=== PATIENT | male | born 1945 | race Caucasian/White ===

== ENCOUNTER 2023-06-29 18:25 | Inpatient (IN) | payer MEDICARE, OTHER, SELFPAY ==
[2023-06-29 15:20] VITALS: BP 126/65
--- NOTE | 2023-06-29 16:39 | ED.GENMED ---
History of Present Illness
<Lula Bolaños PA-C - Last Filed: 06/29/23 18:25>
General
Chief Complaint: Fall
Source: patient
Exam Limitations: none
Time Seen by Provider: 06/29/23 16:37
Nursing documentation reviewed up to this point in time: agreed with
Travel History
Have you had any contact with someone who has COVID-19?: No
Do you have any symptoms of coronavirus? Fever > 100 degrees, chills, cough, shortness of breath, sore throat, loss of taste or smell, muscle aches, or headache?: No
History of Present Illness
History of Present Illness:
This is a 78-year-old male with a past medical history of COPD on oxygen, A-fib on Eliquis, diabetes who presents to the emergency department today with left hip pain following a fall. He states that the pain is intermittent and comes and sharp
waves. He states that any cell movement makes the pain significantly worse. He states he was at the dentist today when he is trying to move from his wheelchair to the dentist's chair when he fell onto his left side. He states that on the way down,
he states that he hit his head and hip. He denies headache, chest pain, shortness of breath, abdominal pain, shoulder pain, denies any other injuries. Did not take anything for the pain today did not have anything to eat. He is on a wheelchair at
baseline and has home oxygen to maintain O2 sat greater than 92.
Past History
<Lula Bolaños PA-C - Last Filed: 06/29/23 18:25>
Past History
ED Past Medical History: Cancer, COPD, GERD, HTN, Hypercholesterolemia, NIDDM and Other
ED Past Surgical History: Orthopedic and Other (Cataract surgery)
Social History
Tobacco: Former smoker
Alcohol: Daily
Drug: None
Living: alone
Employment: Retired
Family History
Family History: Other (Dad with Alzheimer's) and Unable to obtain
Review of Systems
<Lula Bolaños PA-C - Last Filed: 06/29/23 18:25>
Review of Systems
All Other Systems: ROS reviewed and negative except as documented in HPI and ROS
Phy Exam
<Lula Bolaños PA-C - Last Filed: 06/29/23 18:25>
Physical Exam
Physical Exam:
General: Patient appears uncomfortable and slightly anxious secondary to pain.
Skin: Warm and dry, no areas of ecchymosis. No edema, swelling, erythema.
HEENT: Head is normocephalic, atraumatic.
Cardiac: Bradycardia, regular rhythm, no murmurs
Pulm: Normal respiratory effort, no wheezes, rales, rhonchi
Abdomen: Non-distended, nontender
Musculoskeletal: Patient has tenderness palpation in the left hip joint. Patient unable to move his left hip joint through active range of motion due to severe pain.
Neuro/Psych: alert and oriented x3. CN II-XII Patient seems to have poor insight to some of his medical conditions.
Course
<Lula Bolaños PA-C - Last Filed: 06/29/23 18:25>
Orders/Labs/Results
Orders:
Orders
06/29/23 15:28
Electrocardiogram (*1) Urgent
Reason for Study: Chest Pain
CT Head W/o Iv Contrast Urgent
Comment:
Reason For Exam: fall
EKG- Treatment ONCE
06/29/23 15:30
CR Hip - LT w/wo Pel 2-3 Vw* Urgent
Comment:
Reason For Exam: fall
Include a pelvis x-ray?: Yes
06/29/23 16:57
Morphine Sulfate 2 mg IV NOW STA
06/29/23 17:01
Complete Blood Count/With Diff Urgent
Comprehensive Metabolic Panel Urgent
06/29/23 18:00
Admit/Transfer Patient As Directed
Co-Sign Provider:
Level of Care: Inpatient admission
Assign to:: Telemetry
Physician / Group: brooke
Diagnosis: hip fracture
Reason for Telemetry: Arrhythmia
Date to Stop Telemetry: 07/02/23
Time to Stop Telemetry: 11:00
Reason for Hospitalization: hip fracture
Expected length of stay greater than two midnights?: Yes
ELOS- Estimated Length of Stay in days: 2
I certify the patient meets the requirements for IP care: Yes
06/29/23 18:01
Code Status As Directed
Resuscitation Status: Full Code
07/02/23 11:00
DC Protocol for Telemetry ONCE
Abnormal Lab Results
06/29/23
17:01
WBC 13.4 H 10^3/uL
(4.8-10.8)
RBC 4.05 L 10^6/uL
(4.70-6.10)
Hgb 12.0 L g/dL
(13.0-18.0)
Hct 37.2 L %
(39.0-52.0)
MCHC 32.3 L g/dL
(33.0-37.0)
Abs Immat Gran (auto) 0.1 H 10^3/uL
(0-0.05)
Absolute Neuts (auto) 11.1 H 10^3/uL
(1.4-6.5)
Absolute Lymphs (auto) 1.1 L 10^3/uL
(1.2-3.4)
Absolute Monos (auto) 0.9 H 10^3/uL
(0.1-0.6)
Neutrophils % 82.9 H %
(42.2-75.2)
Lymphocytes % 8.2 L %
(20.5-51.1)
Glucose 136 H mg/dl
(70-99)
06/29/23 17:01
06/29/23 17:01
Vital Signs
Initial and Last Documented VS:
Initial Vital Signs
Temp Pulse Resp BP Pulse Ox
97.6 F 45 20 126/65 98
06/29/23 15:20 06/29/23 15:20 06/29/23 15:20 06/29/23 15:20 06/29/23 15:20
Last Documented Vital Signs
Temp Pulse Resp BP Pulse Ox
97.6 F 46 20 137/58 92
06/29/23 15:20 06/29/23 18:15 06/29/23 15:20 06/29/23 18:00 06/29/23 18:15
<Anders Hester, DO - Last Filed: 06/29/23 17:32>
Orders/Labs/Results
Orders:
Orders
06/29/23 15:28
Electrocardiogram (*1) Urgent
Reason for Study: Chest Pain
CT Head W/o Iv Contrast Urgent
Comment:
Reason For Exam: fall
EKG- Treatment ONCE
06/29/23 15:30
CR Hip - LT w/wo Pel 2-3 Vw* Urgent
Comment:
Reason For Exam: fall
Include a pelvis x-ray?: Yes
06/29/23 16:57
Morphine Sulfate 2 mg IV NOW STA
06/29/23 17:01
Complete Blood Count/With Diff Urgent
Comprehensive Metabolic Panel Urgent
06/29/23 18:00
Admit/Transfer Patient As Directed
Co-Sign Provider:
Level of Care: Inpatient admission
Assign to:: Telemetry
Physician / Group: brooke
Diagnosis: hip fracture
Reason for Telemetry: Arrhythmia
Date to Stop Telemetry: 07/02/23
Time to Stop Telemetry: 11:00
Reason for Hospitalization: hip fracture
Expected length of stay greater than two midnights?: Yes
ELOS- Estimated Length of Stay in days: 2
I certify the patient meets the requirements for IP care: Yes
06/29/23 18:01
Code Status As Directed
Resuscitation Status: Full Code
07/02/23 11:00
DC Protocol for Telemetry ONCE
Abnormal Lab Results
06/29/23
17:01
WBC 13.4 H 10^3/uL
(4.8-10.8)
RBC 4.05 L 10^6/uL
(4.70-6.10)
Hgb 12.0 L g/dL
(13.0-18.0)
Hct 37.2 L %
(39.0-52.0)
MCHC 32.3 L g/dL
(33.0-37.0)
Abs Immat Gran (auto) 0.1 H 10^3/uL
(0-0.05)
Absolute Neuts (auto) 11.1 H 10^3/uL
(1.4-6.5)
Absolute Lymphs (auto) 1.1 L 10^3/uL
(1.2-3.4)
Absolute Monos (auto) 0.9 H 10^3/uL
(0.1-0.6)
Neutrophils % 82.9 H %
(42.2-75.2)
Lymphocytes % 8.2 L %
(20.5-51.1)
Glucose 136 H mg/dl
(70-99)
06/29/23 17:01
06/29/23 17:01
Vital Signs
Initial and Last Documented VS:
Initial Vital Signs
Temp Pulse Resp BP Pulse Ox
97.6 F 45 20 126/65 98
06/29/23 15:20 06/29/23 15:20 06/29/23 15:20 06/29/23 15:20 06/29/23 15:20
Last Documented Vital Signs
Temp Pulse Resp BP Pulse Ox
97.6 F 46 20 137/58 92
06/29/23 15:20 06/29/23 18:15 06/29/23 15:20 06/29/23 18:00 06/29/23 18:15
<Lula Bolaños PA-C - Last Filed: 06/29/23 18:25>
MDM/Problems Addressed
Differential Diagnosis Includes:
Differentials include left hip fracture, musculoskeletal sprain/strain, intracranial hemorrhage, epidural hematoma, skull fracture
MDM/Problems Addressed:
Left hip pain
Mechanical fall
Chronic conditions affecting care: DM, HTN and COPD
Acute Exacerbation and/or Progression of Chronic Illness:
n/a
<Lula Bolaños PA-C - Last Filed: 06/29/23 18:25>
*Pulse Oximetry
Patient hypoxic: no
*Critical Care Note
Total Time (30-74mins, 75-104mins- exclusive of procedures): Not Applicable
Data Reviewed
Review of Other/Old Records Reveals: Records (Reviewed recent ER visit from October 2022 for cellulitis)
Prescriptions/Medications Considered But Not Given:
N/A
Further Testing Considered But Not Given:
N/A
<Lula Bolaños PA-C - Last Filed: 06/29/23 18:25>
Patient Management
Discussion with other providers: Hospitalist and Public Defender (Spoke to Dr. Myles with orthopedics)
Escalation/DeEscalation of care consider admission/obs:
This is a 78-year-old male with a past medical history of COPD on oxygen, A-fib on Eliquis, hypertension, diabetes who presents to emergency department today with with left hip pain following a fall. Patient sustained a left hip fracture.
Considering he lives alone, is in severe pain, is unable to ambulate, patient will be admitted for pain control and medical optimization. Orthopedics made aware who will see him on rounds tomorrow and plans for surgery around or Wednesday.
Patient referred for admission
<Lula Bolaños PA-C - Last Filed: 06/29/23 18:25>
Update Note
Update Note:
4:45 pm-- Initially evaluated patient
5:19 pm--spoke to daughter to update on plans, confirmed that he does live in his own apartment at [facility] living [facility] does not completely live on his own. Daughter reports that he has had increasingly more confusion lately and suspects
he may be starting develop dementia
ED Attending Note
<Lula Bolaños PA-C - Last Filed: 06/29/23 18:25>
-
Portions of this chart may have been created with voice recognition software.� Occasional wrong word or��sound alike� substitutions may have occurred due to the inherent limitations of voice recognition software.
<Anders Hester DO - Last Filed: 06/29/23 17:32>
ED Attending Note
Patient seen and examined by attending physician: Yes
I performed the substantive portion of visit, reviewed & personally made and approve the management plan that is documented in note by myself or JEN.: Yes
I performed a history and physical exam of patient and discussed management with resident, I reviewed resident's note and agree with documented findings and plan of care.: Yes
ED Attending Note:
I evaluated patient at bedside. The patient does appear somewhat confused. He has decreased active range of motion at the left hip.
Discharge Plan
Departure
Patient Disposition: Admit
Date of Disposition: 06/29/23
Time of Disposition: 17:11
Admit to doctor: Dr. Webber
Presentation/result/management discussed w/ accepting MD/DO: Hospitalist
Patient with high blood pressure during this ER visit?: Yes
Condition: Fair
Discharge Problem:
Closed left hip fracture, Bradycardia
Prescriptions:
No Action
metoprolol succinate 100 MG tablet extended release 24 hr
100 mg PO DAILY
aspirin 81 MG tablet,chewable
81 mg PO DAILY
acetaminophen 325 MG tablet
650 mg PO Q4HPRN PRN (Reason: moderate pain/fever)
polyethylene glycol 3350 17 GRAMS powder in packet
17 grams PO MOWEFR
Eliquis 5 MG tablet
5 mg PO BID
magnesium oxide 500 MG tablet
500 mg PO BID 0RF
magnesium hydroxide [Milk of Magnesia] 400 mg/5 mL Suspension
30 ml PO HS PRN (Reason: constipation)
ascorbic acid (vitamin C) [Vitamin C] 500 mg Tablet
500 mg PO DAILY
fluoxetine 20 mg Capsule
20 mg PO DAILY
trazodone 50 mg Tablet
25 mg PO HS
atorvastatin 20 mg tablet
20 mg PO HS
donepezil 10 mg tablet
10 mg PO HS
cyanocobalamin (vitamin B-12) [Vitamin B-12] 1,000 mcg Tablet
1,000 mcg PO DAILY
dextromethorphan-guaifenesin [Guaifenesin DM] 10-100 mg/5 mL Syrup
10 ml PO Q4H PRN (Reason: cough)
Aquaphor Ointment
1 applic TOPICAL BID
Rx Instructions:
apply to left heel
pantoprazole 20 mg tablet,delayed release (DR/EC)
20 mg PO DAILY
zinc sulfate 50 mg zinc (220 mg) Tablet
50 mg PO DAILY
ammonium lactate [AmLactin] 12 % Cream
1 applic TOPICAL BID
Rx Instructions:
apply to heel
lorazepam 1 mg tablet
1 mg PO DAILY PRN (Reason: prior to MRI)
cholecalciferol (vitamin D3) [Vitamin D3] 125 mcg (5,000 unit) Tablet
250 mcg PO MONTHLY
Rx Instructions:
every Wednesday
fluticasone furoate-vilanterol [Breo Ellipta] 100-25 mcg/dose blister with device
1 inh INHALATION R DAILY
PreserVision AREDS-2 250-90-40-1 mg Capsule
1 tab PO BID
Referrals:
Ofe Christie DO [Family Provider] -
Interventions
Interventions:
*Risk Screen - Suicide Last Done: 06/29/23 15:20
*General Assessment Last Done: 06/29/23 15:20
*Neglect/Abuse Screening Last Done: 06/29/23 15:20
ED- Fall Risk Assessment Last Done: 06/29/23 16:43
*ED COVID-19 Vaccine History Last Done: 06/29/23 16:38
ED-Musculoskeletal Assessment Last Done: 06/29/23 16:43
ED- Neurological Assessment Last Done: 06/29/23 16:43
ED-Skin Assessment Last Done: 06/29/23 16:44
[2023-06-29 16:42] VITALS: BMI 25.3
[2023-06-29 16:48] VITALS: BP 156/63
[2023-06-29 17:00] VITALS: BP 152/55
[2023-06-29] MEDS: MORPHINE SULFATE 2 MG IV ×2 (17:01→19:23)
[2023-06-29 17:27] LABS: % Basophils 0.5 % (0-2); % Eosinophils 1.6 % (0-6); % Immature Granulocytes 0.4 % (0-0.5); % Lymphocytes 8.2 % (20.5-51.1); % Monocytes 6.4 % (1.7-9.3); % Neutrophils 82.9 % (42.2-75.2); Absolute Basophils 0.1 10^3/uL (0-0.2); Absolute Eosinophils 0.2 10^3/uL (0-0.7); Absolute Immature Granulocytes 0.1 10^3/uL (0-0.05); Absolute Lymphocytes 1.1 10^3/uL (1.2-3.4); Absolute Monocytes 0.9 10^3/uL (0.1-0.6); Absolute Neutrophils 11.1 10^3/uL (1.4-6.5); Hematocrit 37.2 % (39.0-52.0); Mean Corp Hgb Conc. 32.3 g/dL (33.0-37.0); Mean Corpuscular Hgb 29.6 pg (27.0-31.0); Mean Corpuscular Volume 91.9 fL (80.0-94.0); Mean Platelet Volume 9.2 fL (7.4-10.4); Nucleated Red Blood Cells % 0 % (-); Platelet Count 293 10^3/uL (130-400); Red Blood Cell Count 4.05 10^6/uL (4.70-6.10); Red Cell Dist. Width 14.5 % (11.5-14.5); White Blood Cell Count 13.4 10^3/uL (4.8-10.8)
[2023-06-29 18:00] VITALS: BP 137/58
--- NOTE | 2023-06-29 18:04 | HPS.HSE ---
Family Physician
-
Family Physician: Ofe Christie DO
Chief Complaint
-
fall
History of Present Illness
78-year-old male with past medical history of atrial fibrillation on Eliquis, hypertension, COPD on home oxygen, diabetes, GERD, hypercholesteremia, ambulatory dysfunction wheelchair-bound at baseline presenting to the emergency room after left hip
pain after a fall. Pain is intermittent and comes in sharp waves. Any movement makes pain worse. He was at the dentist today when he was trying to move from his wheelchair to the dentist chair he fell onto his left side and hit his head and hip.
He denies headache or chest pain or shortness of breath or abdominal pain or shoulder pain or any other injuries.
Patient denies any chest pain or shortness of breath or dizziness. He denies any palpitation or syncope. He denies any complications with anesthesia previously.
He sees a fashion director in [place]. He is a former smoker. Denies any alcohol use at this time.
Medical History
Past Medical History
Past Medical History: Reports Other (atrial fibrillation on Eliquis, hypertension, COPD on home oxygen, diabetes, GERD, hypercholesteremia, ambulatory dysfunction wheelchair-bound at baseline)
Past Surgical History: Reports Other (Orthopedic and Other (Cataract surgery))
Social History
Tobacco: Former Smoker
Alcohol: None
Drug: None
Family History
Family History: Not pertinent
Allergies / Home Medications
Allergies reflects when Allergies were last updated in [employer].
Home Medications with original date entered in [employer]
Allergy/Medication List:
Allergies
Allergy/AdvReac Type Severity Reaction Status Date / Time
naproxen [From Naprosyn] Allergy Rash Verified 06/29/23 15:20
Home Medications
acetaminophen 325 mg tablet 650 mg PO Q4HPRN PRN moderate pain/fever 07/15/21
aspirin 81 mg chewable tablet 81 mg PO DAILY Blood clot prevention/tx 07/15/21
metoprolol succinate 100 mg tablet,extended release 24 hr 100 mg PO DAILY Blood pressure 07/15/21
polyethylene glycol 3350 17 gram oral powder packet 17 grams PO MOWEFR Constipation 07/15/21
apixaban 5 mg tablet (Eliquis) 5 mg PO BID Blood clot prevention/tx 09/10/21
magnesium oxide 500 mg PO BID 09/29/21
ascorbic acid (vitamin C) 500 mg tablet (Vitamin C) 500 mg PO DAILY 02/11/22
fluoxetine 20 mg capsule 20 mg PO DAILY 02/11/22
magnesium hydroxide 400 mg/5 mL oral suspension (Milk of Magnesia) 30 ml PO HS PRN constipation 02/11/22
trazodone 50 mg tablet 25 mg PO HS 02/11/22
ammonium lactate 12 % topical cream 1 applic topical BID 06/29/23
atorvastatin 20 mg tablet 20 mg PO HS 06/29/23
cholecalciferol (vitamin D3) 125 mcg (5,000 unit) tablet (Vitamin D3) 250 mcg PO MONTHLY 06/29/23
cyanocobalamin (vitamin B-12) 1,000 mcg tablet (Vitamin B-12) 1,000 mcg PO DAILY 06/29/23
dextromethorphan-guaifenesin 10 mg-100 mg/5 mL oral syrup 10 ml PO Q4H PRN cough 06/29/23
donepezil 10 mg tablet 10 mg PO HS 06/29/23
fluticasone furoate 100 mcg-vilanterol 25 mcg/dose inhalation powder (Breo Ellipta) 1 inh inhalation R DAILY 06/29/23
lorazepam 1 mg tablet 1 mg PO DAILY PRN prior to MRI 06/29/23
mineral oil-hydrophil petrolat topical ointment (Aquaphor topical ointment) 1 applic topical BID 06/29/23
pantoprazole 20 mg tablet,delayed release 20 mg PO DAILY 06/29/23
vit C 250 mg-vit E 90 mg-zinc 40 mg-copper 1 [id number] capsule (PreserVision AREDS-2) 1 tab PO BID 06/29/23
zinc sulfate 50 mg zinc (220 mg) tablet 50 mg PO DAILY 06/29/23
Review of Systems
-
History Source: Patient
A 12 point ROS was completed and negative except as noted: Yes
Constitutional: Reports No Symptoms
EENT: Reports No Symptoms
Respiratory: Reports No Symptoms
Cardiac: Reports No Symptoms
Abdomen/GI: Reports No Symptoms
: Reports No Symptoms
Musculoskeletal: Reports No Symptoms
Skin: Reports No Symptoms
Neurological: Reports No Symptoms
Endocrine: Reports No Symptoms
Hematologic/Lymphatic: Reports No Symptoms
Psych: Reports No Symptoms
Physical Exam
Vital Signs
Vital Signs
Temp Pulse Resp BP Pulse Ox
97.6 F 48 20 152/55 96
06/29/23 15:20 06/29/23 17:00 06/29/23 15:20 06/29/23 17:00 06/29/23 16:48
Physical Exam
General: Well Developed, Well Nourished and No Apparent Distress
HEENT: NormoCephalic, Moist mucous membranes and Atraumatic
Respiratory: Clear
Cardiac: S1/S2 and Regular Rhythm; No Murmur or Rub
GI: Soft, Non Tender, Non Distended and Normal Bowel Sounds; No Organomegaly
Rectal: Deferred by Provider
Musculoskeletal: No Clubbing, No Cyanosis and No Edema
Skin: No Rash
Neuro: Nonfocal/grossly intact
Laboratory Results
-
06/29/23 17:01
Data Reviewed
-
Lab Data: Labs Reviewed by me
Old Records: Reviewed
Impression/Plan
-
IMPRESSION:
PLAN:
# Left proximal femur fracture
-Tylenol, morphine as needed
-Hold Eliquis
-Ortho consulted
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
-EKG shows sinus bradycardia with left bundle branch block which is old
-Hold metoprolol
-Cardiology consultation prior to surgery
Paroxysmal atrial fibrillation
-Hold Eliquis
-Continue aspirin
-Hold metoprolol
Essential hypertension
COPD
-Continue inhalers
Type 2 diabetes
-not on medication
GERD
-Continue Protonix
Hypercholesterolemia
-Continue statin
Ambulatory dysfunction wheelchair-bound
Anxiety/depression
-Continue fluoxetine, Ativan, trazodone
Dementia
-Continue donepezil
Full code
DVT prophylaxis�SCDs
Regular diet
[2023-06-29 18:17] LABS: ALT (SGPT) 13 U/L (0-50); AST (SGOT) 20 U/L (17-59); Albumin 3.7 g/dl (3.5-5.0); Alkaline Phosphatase 99 U/L (38-126); Blood Urea Nitrogen 12 mg/dl (9-20); Calcium 9.1 mg/dl (8.4-10.2); Carbon Dioxide 28 mmol/L (22-30); Chloride 106 mmol/L (98-107); Estimated Creatinine Clearance 76 ml/min; Glucose 136 mg/dl (70-99); Potassium 4.3 mmol/L (3.5-5.1); Sodium 136 mmol/L (135-145); Total Bilirubin 0.6 mg/dl (0.2-1.3); Total Protein 6.4 g/dl (6.3-8.2); eGFR > 60.00
[2023-06-29 19:35] VITALS: BP 134/57; BMI 24.7
[2023-06-29] MEDS: SYMBICORT 160/4.5 MCG INHALER 2 PUFF INH (19:52)
[2023-06-29] MEDS: OCUVITE SOFTGEL 1 CAP PO (20:36)
[2023-06-29] MEDS: MAGNESIUM OXIDE 500 MG PO (20:36)
[2023-06-29] MEDS: LAC HYDRIN, AM LACTIN LOTION 1 APPLIC TOPICAL (20:36)
[2023-06-29] MEDS: HYDROPHOR 1 APPLIC TOPICAL (20:36)
[2023-06-29 20:45] VITALS: BMI 24.7
[2023-06-29] MEDS: LIPITOR 20 MG PO (21:13)
[2023-06-29] MEDS: DESYREL 25 MG PO (21:13)
[2023-06-29] MEDS: ARICEPT 10 MG PO (21:13)
[2023-06-29 23:24] VITALS: BP 115/57
[2023-06-30] VITALS (7 sets, daily range): BP systolic 97–136; BP diastolic 46–83
[2023-06-30] MEDS: MORPHINE SULFATE 2 MG IV ×4 (01:54→19:37)
[2023-06-30 07:04] LABS: % Basophils 0.5 % (0-2); % Eosinophils 0.4 % (0-6); % Immature Granulocytes 0.4 % (0-0.5); % Lymphocytes 13.4 % (20.5-51.1); % Monocytes 11.7 % (1.7-9.3); % Neutrophils 73.6 % (42.2-75.2); Absolute Basophils 0.1 10^3/uL (0-0.2); Absolute Lymphocytes 1.5 10^3/uL (1.2-3.4); Absolute Monocytes 1.3 10^3/uL (0.1-0.6); Absolute Neutrophils 8.2 10^3/uL (1.4-6.5); Hematocrit 32.5 % (39.0-52.0); Hemoglobin 10.6 g/dL (13.0-18.0); Mean Corp Hgb Conc. 32.6 g/dL (33.0-37.0); Mean Corpuscular Hgb 29.9 pg (27.0-31.0); Mean Corpuscular Volume 91.8 fL (80.0-94.0); Mean Platelet Volume 9.2 fL (7.4-10.4); Nucleated Red Blood Cells % 0 % (-); Platelet Count 252 10^3/uL (130-400); Red Blood Cell Count 3.54 10^6/uL (4.70-6.10); Red Cell Dist. Width 14.7 % (11.5-14.5); White Blood Cell Count 11.1 10^3/uL (4.8-10.8)
[2023-06-30 07:42] LABS: ALT (SGPT) 13 U/L (0-50); AST (SGOT) 17 U/L (17-59); Albumin 3.1 g/dl (3.5-5.0); Alkaline Phosphatase 76 U/L (38-126); Blood Urea Nitrogen 16 mg/dl (9-20); Carbon Dioxide 27 mmol/L (22-30); Chloride 101 mmol/L (98-107); Estimated Creatinine Clearance 84 ml/min; Glucose 114 mg/dl (70-99); Potassium 4.2 mmol/L (3.5-5.1); Sodium 138 mmol/L (135-145); Total Bilirubin 0.9 mg/dl (0.2-1.3); Total Protein 5.6 g/dl (6.3-8.2); eGFR > 60.00
--- NOTE | 2023-06-30 08:22 | CON.CAR ---
Addendum entered and electronically signed by Silvio Jerry MD 06/30/23 13:20:
Patient seen and examined in collaboration with [employer]ORING ROOM [employer]; agree with below.
-78-year-old male with medical history as outlined below; admitted with a left hip fracture after a fall.
-The patient will be at elevated cardiac risk as documented below, but appears to be optimized at this time.
-Unremarkable echocardiogram and stress test in 2021; denies any cardiac symptoms currently.
-Continue fermenter helper; will decrease Toprol-XL dose to 50 mg daily.
-Will continue to follow along periprocedurally; Eliquis being held for surgery.
Original Note:
Consultation
Consultation Request
Date/Time Consultation Requested: 06/29/232228
Date/Time Consultation Performed: 06/30/23 0800
Requesting Provider: Dr. Rosa
Performing Provider: Yue GREEN for Dr. Jerry
Reason for Consultation: bradycardia
Medical History
-
Chief Complaint: fall with hip pain
History of Present Illness:
78 y/o male with resolved NICM, COPD, LBBB, GERD, DM, dyslipidemia, PAD, PAF (per chart, though patient unaware of this diagnosis), dementia, and DVT on Eliquis who is here for evaluation after he was moving from his wheelchair to dentist chair and
slipped and fell. He developed hip pain and is confirmed to have a left hip fracture. We are consulted since bradycardia was noted on the monitor. He denies any dizziness or syncope. EKG shows SB at 46 BPM. Monitor shows SB/SR in 50's-60, without
long pauses or severe bradycardia. He denies any CP or SOB, but is generally wheelchair bound. He has seen Dr. Macedo as OP 2015. Notes suggest he has education counselor in [place], but he cannot confirm this for me.
Past Medical History
Past Medical History: Other (as above)
Social History
Tobacco: Former Smoker
Alcohol: Daily (2 drinks daily (manhattens or beer))
Living: Assisted Living
Family History
Family History: Reviewed & Not Pertinent
Allergies / Home Medications
Allergy/AdvReac Type Severity Reaction Status Date / Time
naproxen [From Naprosyn] Allergy Rash Verified 06/29/23 15:20
Medication Instructions Recorded Confirmed Type
acetaminophen 325 mg tablet 650 mg PO Q4HPRN PRN moderate 07/15/21 06/29/23 History
pain/fever
aspirin 81 mg chewable tablet 81 mg PO DAILY Blood clot 07/15/21 06/29/23 History
prevention/tx
metoprolol succinate 100 mg 100 mg PO DAILY Blood pressure 07/15/21 06/29/23 History
tablet,extended release 24 hr
polyethylene glycol 3350 17 gram 17 grams PO MOWEFR Constipation 07/15/21 06/29/23 History
oral powder packet
apixaban 5 mg tablet (Eliquis) 5 mg PO BID Blood clot 09/10/21 06/29/23 History
prevention/tx
magnesium oxide 500 mg PO BID 09/29/21 06/29/23 Rx
ascorbic acid (vitamin C) 500 mg 500 mg PO DAILY 02/11/22 06/29/23 History
tablet (Vitamin C)
fluoxetine 20 mg capsule 20 mg PO DAILY 02/11/22 06/29/23 History
magnesium hydroxide 400 mg/5 mL 30 ml PO HS PRN constipation 02/11/22 06/29/23 History
oral suspension (Milk of Magnesia)
trazodone 50 mg tablet 25 mg PO HS 02/11/22 06/29/23 History
ammonium lactate 12 % topical cream 1 applic topical BID 06/29/23 06/29/23 History
atorvastatin 20 mg tablet 20 mg PO HS 06/29/23 06/29/23 History
cholecalciferol (vitamin D3) 125 250 mcg PO MONTHLY 06/29/23 06/29/23 History
mcg (5,000 unit) tablet (Vitamin
D3)
cyanocobalamin (vitamin B-12) 1,000 mcg PO DAILY 06/29/23 06/29/23 History
1,000 mcg tablet (Vitamin B-12)
dextromethorphan-guaifenesin 10 10 ml PO Q4H PRN cough 06/29/23 06/29/23 History
mg-100 mg/5 mL oral syrup
donepezil 10 mg tablet 10 mg PO HS 06/29/23 06/29/23 History
fluticasone furoate 100 1 inh inhalation R DAILY 06/29/23 06/29/23 History
mcg-vilanterol 25 mcg/dose
inhalation powder (Breo Ellipta)
lorazepam 1 mg tablet 1 mg PO DAILY PRN prior to MRI 06/29/23 06/29/23 History
mineral oil-hydrophil petrolat 1 applic topical BID 06/29/23 06/29/23 History
topical ointment (Aquaphor topical
ointment)
pantoprazole 20 mg tablet,delayed 20 mg PO DAILY 06/29/23 06/29/23 History
release
vit C 250 mg-vit E 90 mg-zinc 40 1 tab PO BID 06/29/23 06/29/23 History
mg-copper 1 [id number]
capsule (PreserVision AREDS-2)
zinc sulfate 50 mg zinc (220 mg) 50 mg PO DAILY 06/29/23 06/29/23 History
tablet
Review of Systems
-
History Source: Patient
All other systems: Negative unless noted
Musculoskeletal: Other (fall with hip pain)
Physical Exam
Vital Signs
Temp Pulse Resp BP Pulse Ox
98.3 F 72 18 131/77 97
06/30/23 08:08 06/30/23 08:08 06/30/23 08:08 06/30/23 08:08 06/30/23 08:08
Lab Results
06/30/23 06:49
06/30/23 06:49
Physical Exam
General: Well Developed, Well Nourished and No Apparent Distress
HEENT: Normocephalic and Anicteric
Respiratory: Clear and Non Labored Respirations
Cardiac: Regular Rhythm (SB/SR)
Musculoskeletal: No Edema
Skin: Warm and Dry
Neuro: AO x 3 (but forgetful (which has been noted by family per chart))
Psych: Calm
Impression / Plan
-
Left femur fracture: acute
-this diagnosis in threat to bodily function
-management per ortho. Plan per chart will be open reduction, internal fixation with gamma nail after Eliquis washout.
-pre-op cardiovascular risk assessment: patient is above average risk for surgery due to age, functional status, and comorbidities: see chart below for details. We will continue BB, but lower dose due to asymptomatic bradycardia. He denies any CP,
SOB, palpitations, or dizziness. He is wheelchair-bound. Echo 2021 normal and stress test 2021 without ischemia. Follow telemetry.
Resolved NICM:
-diagnosed in 2014 in setting of acute illness
-echo 2021 normal
PAD:
-follows with vascular
-continue ASA, statin
LBBB:
-chronic, stable
PAF:
-per chart, patient unaware of this diagnosis
-on Eliquis with hx LE DVT
-on metoprolol, follow tele
COPD:
-stable without wheezing or SOB
Data Reviewed
-
EKG: Tracing Personally Visualized and interpreted (SB at 46 BPM, baseline artifact noted)
Radiology: Report Reviewed by me (hip XR: left proximal femoral fracture, intertrochanteric/subtrochanteric.)
CT Scan: Report Reviewed by me (head CT: No acute intracranial abnormality.)
Medical Tests (Nuc Med, Echo etc): Report Reviewed by me (brunilda stress 07/21/21: no reversible defects. Echo 07/18/21: Normal left ventricular size, wall thickness and systolic function. LV ejection fraction is 50-55%. No significant valvular
disease. Cath 2015: no obstructive CAD)
Labs: Labs Reviewed by me
[2023-06-30] MEDS: SYMBICORT 160/4.5 MCG INHALER 2 PUFF INH ×2 (08:36→20:24)
[2023-06-30] MEDS: VITAMIN B-12 1000 MCG PO (09:16)
[2023-06-30] MEDS: VITAMIN C 500 MG PO (09:16)
[2023-06-30] MEDS: PROTONIX 20 MG PO (09:16)
[2023-06-30] MEDS: LOW STRENGTH ASPIRIN 81 MG PO (09:16)
[2023-06-30] MEDS: PROZAC 20 MG PO (09:16)
[2023-06-30] MEDS: ZINC SULFATE 220 MG PO (09:16)
[2023-06-30] MEDS: MAGNESIUM OXIDE 500 MG PO ×2 (09:16→21:30)
[2023-06-30] MEDS: OCUVITE SOFTGEL 1 CAP PO ×2 (09:16→19:36)
[2023-06-30] MEDS: HYDROPHOR 1 APPLIC TOPICAL ×2 (09:22→21:34)
[2023-06-30] MEDS: LAC HYDRIN, AM LACTIN LOTION 1 APPLIC TOPICAL ×2 (09:23→21:32)
--- NOTE | 2023-06-30 09:38 | W.PN.UPDATE ---
Update Note
Progress Note Update
Patient seen on morning rounds. Full consult note to follow.
Patient sustained an intertrochanteric femur fracture in his fall. We recommend proceeding with ORIF left femur fracture with cephalomedullary nail. The risks, benefits, alternatives, recovery process and potential complications were discussed in
detail. Patient elected to proceed with surgical fixation of his fracture. Surgical and blood consents are signed and in patient's chart. We will proceed with surgery tomorrow afternoon under the direction of Dr. Myles after Eliquis washout.
--NWB to LLE.
--NPO after midnight for OR 07/01/23
--Continue pain control per primary.
--Patient also complaining of left middle finger pain. Ordered XR for further evaluation.
[2023-06-30] MEDS: TOPROL XL 50 MG PO (10:23)
[2023-06-30] MEDS: MIRALAX 17 GRAMS PO (10:24)
--- NOTE | 2023-06-30 11:28 | W.PN.HOSP.TC ---
Addendum entered and electronically signed by Carol Danielson MD 06/30/23 13:23:
updated daughter on the phone
Addendum entered and electronically signed by Carol Danielson MD 06/30/23 11:45:
Correction to below:
Toprol 50 mg was added by card (half of home dose)
Original Note:
Today's Communication/Plan
-
see A/P
Assessment / Plan
Assessment / Plan
78-year-old male with past medical history of atrial fibrillation on Eliquis, hypertension, COPD on home oxygen, diabetes, GERD, hypercholesteremia, ambulatory dysfunction wheelchair-bound at baseline presented to the emergency room after left hip
pain after a fall.�Pain is intermittent and comes in sharp waves.�Any movement makes pain worse.� He was at the dentist on DO[place] when he was trying to move from his wheelchair to the dentist chair he fell onto his left side and hit his head and hip.�
He denies headache or chest pain or shortness of breath or abdominal pain or shoulder pain or any other injuries.
Patient denies any chest pain or shortness of breath or dizziness.� He denies any palpitation or syncope.� He denies any complications with anesthesia previously.
He sees a student worker in [place].� He is a former smoker.� Denies any alcohol use at this time.
A/P:
# Mechanical fall with Left proximal femur fracture
Pain control with Tylenol, morphine as needed
Hold Eliquis
Ortho on board, recc ORIF left femur. Plan for surgery 07/01/[address] Myles after Eliquis washout. NPO after midnight. NWB to LLE.
Patient also complaining of left middle finger pain. XR limited but did not reveal displaced fracture or dislocation.
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
EKG shows sinus bradycardia with left bundle branch block which is old
Hold [employer] metoprolol
Cardiology consultation prior to surgery
# Paroxysmal atrial fibrillation
Hold Eliquis
Continue aspirin
Hold metoprolol
# Essential hypertension
# COPD
Continue inhalers
# Type 2 diabetes
not on medication
# GERD
Continue Protonix
# Hypercholesterolemia
Continue statin
# Ambulatory dysfunction wheelchair-bound
# Anxiety/depression
Continue fluoxetine, Ativan, trazodone
# Dementia
Continue donepezil
Full code
DVT prophylaxis�SCDs
Regular diet
Anticipated Discharge: 24 - 48 hours
Subjective/Interval History
-
Date of Service: June 30, 2023
Objective Data
-
Labs:
Laboratory Results
06/30/23
06:49
WBC 11.1 H
Hgb 10.6 L
Hct 32.5 L
Plt Count 252
Sodium 138
Potassium 4.2
Chloride 101
Carbon Dioxide 27
BUN 16
Creatinine 0.7
Glucose 114 H
Calcium 9.0
Total Bilirubin 0.9
AST 17
ALT 13
Alkaline Phosphatase 76
Vital Signs:
Vital Signs
Temp Pulse Resp BP Pulse Ox
36.8 C 56 18 131/77 97
06/30/23 08:08 06/30/23 08:38 06/30/23 08:38 06/30/23 08:08 06/30/23 09:29
I&O
06/29/23 06/30/23 07/01/23
06:59 06:59 06:59
Intake Total 480 / 480
Balance 480 / 480
Review of Systems
-
All other systems: Reviewed and negative
Physical Exam
-
General: Well Developed, Well Nourished, No Apparent Distress, Comfortable and Conversant; Negative Respiratory Distress
HEENT: Normocephalic, Atraumatic, Nose Appears Normal and Ears Appear Normal; Negative Oxygen
Respiratory: Clear to Auscultation and Non Labored Respirations; Negative Accessory Resp Muscle Use
Cardiac: Regular Rhythm and S1/S2
GI: Soft, Nontender, Nondistended and Normal Bowel Sounds
Skin: Warm and Dry
Neuro: Awake, Alert, Oriented and AO x 3
Psych: Calm and Intact Judgement/Insight
Data Reviewed
-
Labs: Labs Reviewed by me
--- NOTE | 2023-06-30 11:47 | CON.ORTHO ---
Consultation
-
Date/Time Consultation Requested: 06/29/2023; time unknown
Date/Time Consultation Performed: 06/30/2023; 0730
Requesting Provider: unknown
Performing Provider: Dr. Ligia Myles / Yomaira Camarillo PA-C
Reason for Consultation: Left hip fracture
Consultation - Orthopedics
History
Mr. Velásquez is an 78 year old male with past medical history of atrial fibrillation on Eliquis, hypertension, COPD on home oxygen, diabetes, GERD, hypercholesteremia, ambulatory dysfunction wheelchair-bound at baseline. He presented to the ED via EMS
yesterday after a fall. He reports he was at the dentist's office for tooth extraction when he fell onto his left side. He experienced immediate onset of pain and was unable to get off the ground. X-rays in the ED revealed an intertrochanteric femur
fracture. He is resting comfortably in bed this morning. He does endorse pain in his hip with any movement. Additionally, he endorses pain about his PIP joint of his left third finger.
He reports he is currently staying at [facility] in [place]. He is wheelchair bound at baseline. 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 He does report history of diabetes. He denies PMH of CA. He does
report he was at the dentist yesterday to have 5 teeth extracted because they were 'bad'.
Allergies / Home Medications
Allergy/AdvReac Type Severity Reaction Status Date / Time
naproxen [From Naprosyn] Allergy Rash Verified 06/29/23 15:20
Medication Instructions Recorded
acetaminophen 325 mg tablet 650 mg PO Q4HPRN PRN moderate 07/15/21
pain/fever
aspirin 81 mg chewable tablet 81 mg PO DAILY Blood clot 07/15/21
prevention/tx
metoprolol succinate 100 mg 100 mg PO DAILY Blood pressure 07/15/21
tablet,extended release 24 hr
polyethylene glycol 3350 17 gram 17 grams PO MOWEFR Constipation 07/15/21
oral powder packet
apixaban 5 mg tablet (Eliquis) 5 mg PO BID Blood clot 09/10/21
prevention/tx
magnesium oxide 500 mg PO BID 09/29/21
ascorbic acid (vitamin C) 500 mg 500 mg PO DAILY Supplement 02/11/22
tablet (Vitamin C)
fluoxetine 20 mg capsule 20 mg PO DAILY Depression 02/11/22
magnesium hydroxide 400 mg/5 mL 30 ml PO HS PRN constipation 02/11/22
oral suspension (Milk of Magnesia)
trazodone 50 mg tablet 25 mg PO HS Sleep 02/11/22
ammonium lactate 12 % topical cream 1 applic topical BID Skin Issues 06/29/23
atorvastatin 20 mg tablet 20 mg PO HS High Cholesterol 06/29/23
cholecalciferol (vitamin D3) 125 250 mcg PO MONTHLY Supplement 06/29/23
mcg (5,000 unit) tablet (Vitamin
D3)
cyanocobalamin (vitamin B-12) 1,000 mcg PO DAILY Supplement 06/29/23
1,000 mcg tablet (Vitamin B-12)
dextromethorphan-guaifenesin 10 10 ml PO Q4H PRN cough 06/29/23
mg-100 mg/5 mL oral syrup
donepezil 10 mg tablet 10 mg PO HS dementia 06/29/23
fluticasone furoate 100 1 inh inhalation R DAILY 06/29/23
mcg-vilanterol 25 mcg/dose Lung/Breathing Issues
inhalation powder (Breo Ellipta)
lorazepam 1 mg tablet 1 mg PO DAILY PRN prior to MRI 06/29/23
mineral oil-hydrophil petrolat 1 applic topical BID Skin Issues 06/29/23
topical ointment (Aquaphor topical
ointment)
pantoprazole 20 mg tablet,delayed 20 mg PO DAILY Gastrointestinal 06/29/23
release Issue
vit C 250 mg-vit E 90 mg-zinc 40 1 tab PO BID Supplement 06/29/23
mg-copper 1 di-mrazbm-yogzsc
capsule (PreserVision AREDS-2)
zinc sulfate 50 mg zinc (220 mg) 50 mg PO DAILY Supplement 06/29/23
tablet
Vital Signs / Lab Results
Temp Pulse Resp BP Pulse Ox
98.1 F 76 17 136/83 97
06/30/23 11:42 06/30/23 11:42 06/30/23 11:42 06/30/23 11:42 06/30/23 11:42
06/30/23 06:49
06/30/23 06:49
XR Left hip 06/29/2023 IMPRESSION:
Left proximal femoral fracture, intertrochanteric/subtrochanteric.
XR Left Hand 06/30/2023 IMPRESSION:
Limited as above. No displaced fracture or dislocation identified.
Physical Exam:
General: pleasant male in NAD, AAOx3
Head: atraumatic, normocephalic
Eyes: sclera anicteric
Ears: normal hearing
Lungs: normal work of breathing
Heart: no edema
Left hip: No obvious erythema, ecchymosis, edema or lesions. Tenderness to palpation about the lateral and anterior hip. ROM deferred secondary to known fracture. Positive log roll. Calf soft and nontender. Patient able to wiggle toes, plantar and
dorsiflex ankle. Neurovascularly intact distally.
Left hand: Edema throughout the left middle finger. Well approximated laceration over the PIP joint. Tenderness to palpation about the PIP joint. ROM limited secondary to swelling and patient discomfort. Sensation intact to light touch. Capillary
refill <2 seconds.
Assessment / Plan
Left intertrochanteric femur fracture
--Unfortunately, patient sustained an intertrochanteric femur fracture in his fall. We recommend proceeding with ORIF left femur fracture with cephalomedullary nail. The risks, benefits, alternatives, recovery process and potential complications
were discussed in detail. Patient elected to proceed with surgical fixation of his fracture. Surgical and blood consents are signed and in patient's chart. We will proceed with surgery tomorrow afternoon under the direction of Dr. Myles after
Eliquis washout.
--Patient has significant medical history including DVT, TIAs and DM. Would appreciate input from medical team +/- cardiology for surgical clearance.
--NWB to LLE.
--NPO after midnight for OR 07/01/23
--T+S ordered this AM.
--Continue pain control per primary. Ice and elevation for edema control.
--Ancef ordered to OR for pre-op antibiotic prophylaxis.
Left middle finger pain and swelling
--XRs were reviewed which do not reveal obvious fracture or dislocation. I would recommend edwin taping the finger for comfort. Ice, elevation and pain control per primary.
--- NOTE | 2023-06-30 14:18 | PTCARENOTE ---
pt C/O left heel pain. skin appears CDI affected leg is rotated. This nurse applied protective foam dressing and off loaded heel. left great toe lesion appears scabbed, SHILA.
--- NOTE | 2023-06-30 15:21 | CM ---
Reviewed chart, met with patient to obtain information for assessment. Patient stated that he lives at the [facility]. He receives assistance with his ADLs, personal care dressing and bathing. He gets his meals at the facility and they assist with
cleaning and laundry.
Patient has a PCP-Dr. Ofe Christie
patient has a prescription plan and uses [facility] for all of his medications.
Spoke with wound care and his wound is healing and he has no open sores.
Will review functional status with the [facility] prior to returning back Patient would like to return back there when he is medically stable and cleared for discharge.
Plan: Case management will continue to follow and assist with discharge planning. Patient would like to return home when stable.
--- NOTE | 2023-06-30 16:19 | WOUNDNOTE ---
[facility] RN NOTE: Reviewed chart, met with patient. Patient admitted with hip fracture and is on an air bed. Patient consult received for wound of left great toe. Patient states he follows with Dr. Lanza for toe and recently had punch biopsy and is not
aware of a result yet. The wound is closed and patient leaves open to air. Heels are blanchable. Per YEN Escamilla, sacrum intact. Patient declined being moved or turned due to left hip pain. Will continue to follow as needed.
--- NOTE | 2023-06-30 20:25 | W.PN.UPDATE ---
Update Note
Progress Note Update
Patient seen and examined. Agree with orthopedic PA note. Spoke with daughter Stormy via phone today. Patient has abstain from Eliquis for 48 hours. He fell yesterday at his oral surgeons office fracturing his left hip. He has multiple medical
comorbidities including vascular issues and neuropathy. He has 'rotting teeth in his mouth that were to be extracted'He also has toe infections. He lives at [facility]. According to his daughter he primarily ambulates in a wheelchair.
Left lower extremity external rotation and shortening. No ecchymosis.
X-rays AP of the pelvis and AP and lateral of left hip show a comminuted four-part intertrochanteric left hip fracture. No lesions.
Impression comminuted left intertrochanteric hip fracture
Plan: Nonoperative and operative approaches Of his hip fracture were discussed with patient and daughter. I recommend gamma nail fixation of this fracture. The risks are but are not limited to infection, need for further surgery, need for physical
therapy, stiffness, DVT, PE, Malunion, nonunion, screw cut out, hardware failure, need for removal of hardware, need for conversion to total hip operation, neurovascular impairment, wound healing problems, MO, CVA, catastrophic occurrences, etc.
The postoperative regimen was discussed. We will perform procedure tomorrow late afternoon to allow for washout of his Eliquis. Will also give preoperative antibiotics to reduce his risk of infection. All questions were answered. Consent was
signed and placed on the chart.Expectations of surgical procedure were discussed.
[2023-06-30] MEDS: ARICEPT 10 MG PO (21:30)
[2023-06-30] MEDS: LIPITOR 20 MG PO (21:31)
[2023-06-30] MEDS: DESYREL 25 MG PO (21:31)
[2023-07-01] VITALS (12 sets, daily range): BP systolic 104–171; BP diastolic 51–77
[2023-07-01] MEDS: MORPHINE SULFATE 2 MG IV ×2 (02:21→08:37)
--- NOTE | 2023-07-01 06:45 | W.PN.UPDATE ---
Update Note
Progress Note Update
Patient was seen and evaluated by orthopedic surgery this morning. He is lying in bed comfortably, does not appear to be in any acute distress. He does endorse some pain and discomfort to his left hip.
PE: No obvious erythema, ecchymosis, edema or lesions. Tenderness to palpation about the lateral and anterior hip. ROM deferred secondary to known fracture. Positive log roll. Calf soft and nontender. Patient able to wiggle toes, plantar and
dorsiflex ankle. Neurovascularly intact distally.
Plan: Will plan to proceed with left hip gamma nail fixation today 07/01/23 (late afternoon to allow for washout of his Eliquis). Per cardiology, he appears to be optimized at this time to proceed with surgical intervention. NWB to LLE until postop.
Patient to remain n.p.o. for surgical intervention later today. Continue pain control per primary team. Ice and elevation for edema control. Type and screen completed. Hemoglobin this AM 10.5, continue to monitor. Left hip marked as the correct
surgical extremity. Preoperative antibiotics on-call to the OR. Surgical and blood consent forms have been obtained. Orthopedic surgery will continue to follow along.
[2023-07-01] MEDS: SYMBICORT 160/4.5 MCG INHALER 2 PUFF INH (07:24)
[2023-07-01 08:01] LABS: Hematocrit 32.3 % (39.0-52.0); Hemoglobin 10.5 g/dL (13.0-18.0); Mean Corp Hgb Conc. 32.5 g/dL (33.0-37.0); Mean Corpuscular Hgb 29.5 pg (27.0-31.0); Mean Corpuscular Volume 90.7 fL (80.0-94.0); Mean Platelet Volume 9.4 fL (7.4-10.4); Platelet Count 252 10^3/uL (130-400); Red Blood Cell Count 3.56 10^6/uL (4.70-6.10); Red Cell Dist. Width 14.7 % (11.5-14.5); White Blood Cell Count 12.3 10^3/uL (4.8-10.8)
[2023-07-01] MEDS: PROZAC 20 MG PO (08:22)
[2023-07-01] MEDS: ZINC SULFATE 220 MG PO (08:22)
[2023-07-01] MEDS: OCUVITE SOFTGEL 1 CAP PO ×2 (08:22→21:06)
[2023-07-01] MEDS: PROTONIX 20 MG PO (08:22)
[2023-07-01] MEDS: MAGNESIUM OXIDE 500 MG PO ×2 (08:22→21:06)
[2023-07-01] MEDS: LOW STRENGTH ASPIRIN 81 MG PO (08:22)
[2023-07-01] MEDS: VITAMIN B-12 1000 MCG PO (08:23)
[2023-07-01] MEDS: VITAMIN C 500 MG PO (08:23)
[2023-07-01] MEDS: TOPROL XL 50 MG PO (08:23)
--- NOTE | 2023-07-01 08:26 | W.PN.CD ---
Today's Communication / Plan
-
Having significant pain this AM
No new recommendations
Impression / Plan
-
Left femur fracture: acute
-this diagnosis in threat to bodily function
-management per ortho. Plan per chart will be open reduction, internal fixation with gamma nail after Eliquis washout.
-pre-op cardiovascular risk assessment: patient is above average risk for surgery due to age, functional status, and comorbidities: see chart below for details. We will continue BB, but lower dose due to asymptomatic bradycardia. He denies any CP,
SOB, palpitations, or dizziness. He is wheelchair-bound. Echo 2021 normal and stress test 2021 without ischemia. Follow telemetry.
- having significant pain today
Resolved NICM:
-diagnosed in 2014 in setting of acute illness
-echo 2021 normal
PAD:
-follows with vascular
-continue ASA, statin
LBBB:
-chronic, stable
PAF:
-per chart, patient unaware of this diagnosis
-on Eliquis with hx LE DVT
-on metoprolol, follow tele
COPD:
-stable without wheezing or SOB
Physical Exam
Vital Signs/Labs
Vital Signs
Temp Pulse Resp BP Pulse Ox
98.5 F 60 16 145/60 93
07/01/23 08:15 07/01/23 08:15 07/01/23 08:15 07/01/23 08:15 07/01/23 08:15
06/30/23 07/01/23 07/02/23
06:59 06:59 06:59
Actual Weight 167 lb 5 oz
07/01/23 07:17
Physical Exam
Constitutional: No acute distress
Cardiovascular: Rhythm & rate is regular
Respiratory: Respiratory effort normal and Lungs clear to auscul.
GI: Soft
Neuro/Psych: AO x 3
Data Reviewed
-
Date of Service: July 01, 2023
EKG: Tracing Personally Visualized and interpreted
Echo: Report Reviewed by me
X-Ray/CT/US/MRI/NUC/PET: Report Reviewed by me
Labs: Labs Reviewed by me
[2023-07-01] MEDS: LAC HYDRIN, AM LACTIN LOTION 1 APPLIC TOPICAL ×2 (08:30→21:06)
[2023-07-01] MEDS: HYDROPHOR 1 APPLIC TOPICAL ×2 (08:30→21:06)
[2023-07-01 08:31] LABS: Blood Urea Nitrogen 17 mg/dl (9-20); Calcium 8.8 mg/dl (8.4-10.2); Carbon Dioxide 31 mmol/L (22-30); Chloride 103 mmol/L (98-107); Estimated Creatinine Clearance 74 ml/min; Glucose 119 mg/dl (70-99); Potassium 4.2 mmol/L (3.5-5.1); Sodium 134 mmol/L (135-145); eGFR > 60.00
--- NOTE | 2023-07-01 10:45 | W.PN.HOSP.TC ---
Today's Communication/Plan
-
see A/P
Assessment / Plan
Assessment / Plan
78-year-old male with past medical history of atrial fibrillation on Eliquis, hypertension, COPD on home oxygen, diabetes, GERD, hypercholesteremia, ambulatory dysfunction wheelchair-bound at baseline presented to the emergency room after left hip
pain after a fall.�Pain is intermittent and comes in sharp waves.�Any movement makes pain worse.� He was at the dentist on [place] when he was trying to move from his wheelchair to the dentist chair he fell onto his left side and hit his head and hip.�
He denies headache or chest pain or shortness of breath or abdominal pain or shoulder pain or any other injuries.
Patient denies any chest pain or shortness of breath or dizziness.� He denies any palpitation or syncope.� He denies any complications with anesthesia previously.
He sees a district or district office director in [place].� He is a former smoker.� Denies any alcohol use at this time.
A/P:
# Mechanical fall with Left proximal femur fracture
Pain control with Tylenol, morphine as needed
Hold Eliquis
Ortho on board, for ORIF left femur 07/01/[address] Myles after Eliquis washout.
Patient also complaining of left middle finger pain. XR limited but did not reveal displaced fracture or dislocation.
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
EKG shows sinus bradycardia with left bundle branch block which is old
on decreased dose metoprolol
Cardiology on board
# Paroxysmal atrial fibrillation
Hold Eliquis
Continue aspirin
on decreased dose metoprolol
# Essential hypertension
# COPD
Continue inhalers
# Type 2 diabetes
not on medication
# GERD
Continue Protonix
# Hypercholesterolemia
Continue statin
# Ambulatory dysfunction wheelchair-bound
# Anxiety/depression
Continue fluoxetine, Ativan, trazodone
# Dementia
Continue donepezil
Full code
DVT prophylaxis�SCDs
Regular diet
Anticipated Discharge: 24 - 48 hours
Subjective/Interval History
-
Date of Service: July 01, 2023
Objective Data
-
Labs:
Laboratory Results
07/01/23
07:17
WBC 12.3 H
Hgb 10.5 L
Hct 32.3 L
Plt Count 252
Sodium 134 L
Potassium 4.2
Chloride 103
Carbon Dioxide 31 H
BUN 17
Creatinine 0.8
Glucose 119 H
Calcium 8.8
Vital Signs:
Vital Signs
Temp Pulse Resp BP Pulse Ox
36.9 C 60 16 145/60 93
07/01/23 08:15 07/01/23 08:23 07/01/23 08:15 07/01/23 08:23 07/01/23 08:15
I&O
06/30/23 07/01/23 07/02/23
06:59 06:59 06:59
Intake Total 480 / 480 1440 / 1440
Output Total 500 / 500
Balance 480 / 480 940 / 940
Review of Systems
-
All other systems: Reviewed and negative
Physical Exam
-
General: Well Developed, Well Nourished, No Apparent Distress, Comfortable and Conversant; Negative Respiratory Distress
HEENT: Normocephalic, Atraumatic, Nose Appears Normal and Ears Appear Normal; Negative Oxygen
Respiratory: Clear to Auscultation and Non Labored Respirations; Negative Accessory Resp Muscle Use
Cardiac: Regular Rhythm and S1/S2
GI: Soft, Nontender, Nondistended and Normal Bowel Sounds
Skin: Warm and Dry
Neuro: Awake, Alert, Oriented and AO x 3
Psych: Calm and Intact Judgement/Insight
Data Reviewed
-
Labs: Labs Reviewed by me
[2023-07-01] MEDS: ANCEF 10 IV (16:20)
--- NOTE | 2023-07-01 18:47 | PTCARENOTE ---
Pt arrived to 2s in bed. Hip DSG's C/D/I. Nasal cannula maintained, telemetry applied. Bed locked and in the lowest position, safety maintained. Oriented to room and call bernard.
[2023-07-01] MEDS: SYMBICORT 160/4.5 MCG INHALER INH (19:28)
[2023-07-01] MEDS: DESYREL 25 MG PO (21:06)
[2023-07-01] MEDS: ARICEPT 10 MG PO (21:07)
[2023-07-01] MEDS: LIPITOR 20 MG PO (21:07)
[2023-07-01] MEDS: TYLENOL 650 MG PO (21:19)
[2023-07-02] VITALS (7 sets, daily range): BP systolic 119–158; BP diastolic 56–78; PULSE 64; O2SAT 100
[2023-07-02 05:35] LABS: Hematocrit 31.3 % (39.0-52.0); Hemoglobin 10.8 g/dL (13.0-18.0); Mean Corp Hgb Conc. 34.5 g/dL (33.0-37.0); Mean Corpuscular Hgb 30.3 pg (27.0-31.0); Mean Corpuscular Volume 87.7 fL (80.0-94.0); Mean Platelet Volume 9.3 fL (7.4-10.4); Platelet Count 266 10^3/uL (130-400); Red Blood Cell Count 3.57 10^6/uL (4.70-6.10); Red Cell Dist. Width 14.4 % (11.5-14.5)
[2023-07-02 06:06] LABS: Blood Urea Nitrogen 24 mg/dl (9-20); Calcium 9.2 mg/dl (8.4-10.2); Carbon Dioxide 26 mmol/L (22-30); Chloride 98 mmol/L (98-107); Estimated Creatinine Clearance 74 ml/min; Glucose 173 mg/dl (70-99); Potassium 3.9 mmol/L (3.5-5.1); Sodium 135 mmol/L (135-145); eGFR > 60.00
[2023-07-02] MEDS: SYMBICORT 160/4.5 MCG INHALER 2 PUFF INH ×2 (07:42→20:13)
[2023-07-02] MEDS: ZINC SULFATE 220 MG PO (08:49)
[2023-07-02] MEDS: MAGNESIUM OXIDE 500 MG PO ×2 (08:49→21:16)
[2023-07-02] MEDS: TOPROL XL 50 MG PO (08:49)
[2023-07-02] MEDS: OCUVITE SOFTGEL 1 CAP PO ×2 (08:50→21:15)
[2023-07-02] MEDS: LOW STRENGTH ASPIRIN 81 MG PO (08:50)
[2023-07-02] MEDS: LAC HYDRIN, AM LACTIN LOTION 1 APPLIC TOPICAL ×2 (08:50→21:16)
[2023-07-02] MEDS: PROZAC 20 MG PO (08:50)
[2023-07-02] MEDS: PROTONIX 20 MG PO (08:50)
[2023-07-02] MEDS: VITAMIN B-12 1000 MCG PO (08:50)
[2023-07-02] MEDS: VITAMIN C 500 MG PO (08:50)
[2023-07-02] MEDS: HYDROPHOR 1 APPLIC TOPICAL ×2 (08:51→21:15)
[2023-07-02] MEDS: MIRALAX 17 GRAMS PO (08:53)
--- NOTE | 2023-07-02 08:57 | W.PN.ORTHO ---
Documented by User: Dylan Lira PA-C 07/02/23 09:01
Today's Communication / Plan
-
Appreciate the primary team in the management of this patient
Dispo likely SNF, appreciate CM
Continue PWB LLE on walker/assistance
PT/OT
Eliquis per primary- typically we resume POD#1 in half doses for a few days before resuming full anitcoag
Dressings off in 7-10 days
[place] out in 4 weeks (office or SNF)
If lorna out at SNF outpatient Ortho follow-up in 4 weeks
Assessment
.
Distal Motor Intact: Yes
Dressing:
Clean, dry and intact. Aquacel and sterile gauze dressing in place left thigh
Assessment:
POD#1 ORIF Left femur
overall, all things considered, doing well
calf soft, nontender
Plan
.
Activity:
Out of bed.
PT/OT
Discharge Plan: SNF
Subjective
.
.:
Patient resting comfortably this AM w/o significant left hip pain. A bit confused as he asked if we were taking the hardware out today
Vital Signs and Labs
.
Vital Signs and Labs:
Lab Results
07/02/23 05:22
07/02/23 05:22
Temp Pulse Resp BP Pulse Ox
98.8 F 80 16 156/73 95
07/02/23 07:28 07/02/23 07:43 07/02/23 07:43 07/02/23 07:28 07/02/23 07:43

Documented by User: Ligia Myles, 07/02/23 15:06
Assessment
.
Assessment:
POD#1 ORIF Left hip with gamma nail
overall, all things considered, doing well
calf soft, nontender
--- NOTE | 2023-07-02 09:01 | W.PN.CD ---
Today's Communication / Plan
-
- Continue metoprolol 50mg
- Resume Eliquis when OK from surgical perspective
- We will sign off please do now hesitate to reach out with questions/concerns
Impression / Plan
-
Left femur fracture: acute
-this diagnosis in threat to bodily function
-management per ortho. Plan per chart will be open reduction, internal fixation with gamma nail after Eliquis washout.
-pre-op cardiovascular risk assessment: patient is above average risk for surgery due to age, functional status, and comorbidities: see chart below for details. We will continue BB, but lower dose due to asymptomatic bradycardia. He denies any CP,
SOB, palpitations, or dizziness. He is wheelchair-bound. Echo 2021 normal and stress test 2021 without ischemia. Follow telemetry.
- having significant pain today
Resolved NICM:
-diagnosed in 2014 in setting of acute illness
-echo 2021 normal
PAD:
-follows with vascular
-continue ASA, statin
LBBB:
-chronic, stable
PAF:
-per chart, patient unaware of this diagnosis
-Resume Eliquis once OK by surgical perspective
-on metoprolol, follow tele
COPD:
-stable without wheezing or SOB
Physical Exam
Vital Signs/Labs
Vital Signs
Temp Pulse Resp BP Pulse Ox
98.8 F 80 16 156/73 95
07/02/23 07:28 07/02/23 07:43 07/02/23 07:43 07/02/23 07:28 07/02/23 07:43
07/02/23 05:22
07/02/23 05:22
Magnesium 2.0 mg/dl (1.6-2.3) 07/01/23 07:17
Physical Exam
Constitutional: No acute distress
EENT: Anicteric
Cardiovascular: Rhythm & rate is regular and Pedal edema is absent
Respiratory: Respiratory effort normal and Lungs clear to auscul.
GI: Soft
Neuro/Psych: AO x 3
Data Reviewed
-
Date of Service: July 02, 2023
EKG: Tracing Personally Visualized and interpreted
--- NOTE | 2023-07-02 12:35 | W.PN.HOSP.TC ---
Today's Communication/Plan
-
d/c
Assessment / Plan
Assessment / Plan
78-year-old male with past medical history of atrial fibrillation on Eliquis, hypertension, COPD on home oxygen, diabetes, GERD, hypercholesteremia, ambulatory dysfunction wheelchair-bound at baseline presented to the emergency room after left hip
pain after a fall.�Pain is intermittent and comes in sharp waves.�Any movement makes pain worse.� He was at the dentist on [place] when he was trying to move from his wheelchair to the dentist chair he fell onto his left side and hit his head and hip.�
He denies headache or chest pain or shortness of breath or abdominal pain or shoulder pain or any other injuries.
Patient denies any chest pain or shortness of breath or dizziness.� He denies any palpitation or syncope.� He denies any complications with anesthesia previously.
He sees a knocker out in [place].� He is a former smoker.� Denies any alcohol use at this time.
Gen: NAD, Awake and alert
Eyes: EOMI, PERRLA, no scleral icterus.
Neck: supple.
CV: RRR, +S1/S2, no m/r/g.
Resp: CTAB, no rales, wheezes, or rhonchi.
Abd: +BS, soft, NT, ND
Skin: No rashes.
Neuro: CN 2-12 intact, non-focal.
Psych: Normal mood and affect.
Left proximal femur fracture due to mechanical fracture and likely underlying osteoporosis:
-s/p ORIF with gamma nail on 07/01/23
Asymptomatic chronic sinus bradycardia:
-possibly sick sinus vs metoprolol induced
-EKG showed sinus bradycardia with left bundle branch block which is old
-now on decreased dose metoprolol as per cardiology
Paroxysmal atrial fibrillation:
-restart Eliquis at 2.5mg BID (half dose) as per ortho
-now on decreased dose metoprolol as per cardiology
Other problems:
Essential hypertension: Cont BB
COPD: cont Symbicort
DM2, diet controlled
GERD: Continue Protonix
Hypercholesterolemia: cont statin
Ambulatory dysfunction, wheelchair-bound at [facility]
Anxiety/depression: Cont Prozac/trazodone
Dementia: cont donepezil
FULL/SCDs
Medically cleared for discharge. Case management aware.
Anticipated Discharge: Today
Subjective/Interval History
-
Date of Service: July 02, 2023
Denies CP/SOB.
Objective Data
-
Labs:
Laboratory Results
07/02/23
05:22
WBC 16.0 H
Hgb 10.8 L
Hct 31.3 L
Plt Count 266
Sodium 135
Potassium 3.9
Chloride 98
Carbon Dioxide 26
BUN 24 H
Creatinine 0.8
Glucose 173 H
Calcium 9.2
Vital Signs:
Vital Signs
Temp Pulse Resp BP Pulse Ox
98.8 F 69 17 143/73 96
07/02/23 11:45 07/02/23 11:45 07/02/23 11:45 07/02/23 11:45 07/02/23 11:45
I&O
07/01/23 07/02/23 07/03/23
06:59 06:59 06:59
Intake Total 1440 / 1440 220 / 220
Output Total 500 / 500
Balance 940 / 940 220 / 220
--- NOTE | 2023-07-02 12:39 | CM ---
S/P ORIF L hip on 07/01/23. Anticipate SNF for skilled services and rehab. Await PT recommendations. Patient supplied with [employer] list.
[2023-07-02] MEDS: ELIQUIS 2.5 MG PO ×2 (15:00→21:15)
[2023-07-02] MEDS: ARICEPT 10 MG PO (21:16)
[2023-07-02] MEDS: DESYREL 25 MG PO (21:17)
[2023-07-02] MEDS: LIPITOR 20 MG PO (21:17)
[2023-07-03 06:27] LABS: Hematocrit 28.6 % (39.0-52.0); Hemoglobin 9.5 g/dL (13.0-18.0); Mean Corp Hgb Conc. 33.2 g/dL (33.0-37.0); Mean Corpuscular Hgb 30.2 pg (27.0-31.0); Mean Corpuscular Volume 90.8 fL (80.0-94.0); Mean Platelet Volume 9.8 fL (7.4-10.4); Platelet Count 298 10^3/uL (130-400); Red Blood Cell Count 3.15 10^6/uL (4.70-6.10); Red Cell Dist. Width 14.8 % (11.5-14.5)
[2023-07-03 06:42] LABS: Blood Urea Nitrogen 23 mg/dl (9-20); Calcium 8.6 mg/dl (8.4-10.2); Carbon Dioxide 27 mmol/L (22-30); Chloride 100 mmol/L (98-107); Estimated Creatinine Clearance 98 ml/min; Glucose 123 mg/dl (70-99); Potassium 3.7 mmol/L (3.5-5.1); Sodium 132 mmol/L (135-145); eGFR > 60.00
[2023-07-03 07:10] VITALS: BP 156/67
[2023-07-03] MEDS: SYMBICORT 160/4.5 MCG INHALER 2 PUFF INH ×2 (07:57→18:10)
--- NOTE | 2023-07-03 08:03 | W.PN.UPDATE ---
Update Note
Progress Note Update
Mr. Velásquez is POD2 following his left hip gamma nail performed by Dr. Myles. He is resting comfortably in bed this morning, and reports his symptoms continue to gradually improve with time. He was able to work with physical therapy yesterday.
Directed exam of the left lower extremity reveals slight strikethrough of blood on proximal dressing, otherwise clean, dry and intact. Tenderness to palpation about the lateral hip. Thigh soft and compressible. Calf soft and nontender. Patient able
to wiggle toes, plantar and dorsiflex ankle. Neurovascularly intact distally. VSS.
Hgb 9.5 this AM.
78 yo M POD2 left hip gamma nail under the direction of Dr. Myles
--Continue PWB to LLE with walker. I would advise against a roller scooter as this will place too much stress through his healing femur fracture. I did explain this to the patient today.
--We appreciate the assistance of PT/OT.
--Continue Eliquis.
--Hgb 9.5 this AM. Continue to monitor.
--Surgical dressings to remain in place until 7-10 days post-op. Staple removal at 2 weeks post-op (office or SNF). If removed at SNF, follow up in office at 4 weeks post-op.
--Case management consult for discharge planning.
--Patient is stable post-operatively from an orthopedic standpoint. Orthopedics will sign off for the time being. Please reach out with any additional orthopedic questions or concerns.
[2023-07-03] MEDS: ELIQUIS 2.5 MG PO ×2 (09:06→19:51)
[2023-07-03] MEDS: LOW STRENGTH ASPIRIN 81 MG PO (09:06)
[2023-07-03] MEDS: PROZAC 20 MG PO (09:06)
[2023-07-03] MEDS: MAGNESIUM OXIDE 500 MG PO ×2 (09:07→19:52)
[2023-07-03] MEDS: ZINC SULFATE 220 MG PO (09:07)
[2023-07-03] MEDS: PROTONIX 20 MG PO (09:07)
[2023-07-03] MEDS: VITAMIN C 500 MG PO (09:07)
[2023-07-03] MEDS: TYLENOL 650 MG PO (09:07)
[2023-07-03] MEDS: VITAMIN B-12 1000 MCG PO (09:07)
[2023-07-03] MEDS: OCUVITE SOFTGEL 1 CAP PO ×2 (09:08→19:52)
[2023-07-03] MEDS: HYDROPHOR 1 APPLIC TOPICAL ×2 (09:09→19:52)
[2023-07-03] MEDS: LAC HYDRIN, AM LACTIN LOTION 1 APPLIC TOPICAL ×2 (09:09→19:52)
[2023-07-03] MEDS: TOPROL XL 50 MG PO (09:10)
--- NOTE | 2023-07-03 10:20 | W.PN.HOSP.TC ---
Today's Communication/Plan
-
Cleared for rehab placement
Assessment / Plan
Assessment / Plan
78-year-old male with past medical history of atrial fibrillation on Eliquis, hypertension, COPD on home oxygen, diabetes, GERD, hypercholesteremia, ambulatory dysfunction wheelchair-bound at baseline presented to the emergency room after left hip
pain after a fall.�Pain is intermittent and comes in sharp waves.�Any movement makes pain worse.� He was at the dentist on [place] when he was trying to move from his wheelchair to the dentist chair he fell onto his left side and hit his head and
hip.�He denies headache or chest pain or shortness of breath or abdominal pain or shoulder pain or any other injuries, chest pain or shortness of breath or dizziness.� He denies any palpitation or syncope.� He denies any complications with
anesthesia previously.
He sees a candy vendor in [place].� He is a former smoker.� Denies any alcohol use at this time.
Initial exam:
Gen: NAD, Awake and alert
Eyes: EOMI, PERRLA, no scleral icterus.
Neck: supple.
CV: RRR, +S1/S2, no m/r/g.
Resp: CTAB, no rales, wheezes, or rhonchi.
Abd: +BS, soft, NT, ND
Skin: No rashes.
Neuro: CN 2-12 intact, non-focal.
Psych: Normal mood and affect.
1. Left proximal femur fracture due to mechanical fracture and likely underlying osteoporosis: recovering well.
-s/p ORIF with gamma nail on 07/01/23
-ortho signed off daily care
-place in rehab when bed available
2. Asymptomatic chronic sinus bradycardia: rate now in mid 60s
-possibly sick sinus vs metoprolol induced
-EKG showed sinus bradycardia with left bundle branch block which is old
-now on decreased dose metoprolol as per cardiology
-continue current care
3. Paroxysmal atrial fibrillation: rate in good control at the moment
-now on decreased dose metoprolol as per cardiology
-restarted Eliquis at 2.5mg BID (half dose) as per ortho
-Continue current care
Other problems:
Essential hypertension: Cont BB
COPD: cont Symbicort
DM2, diet controlled
GERD: Continue Protonix
Hypercholesterolemia: cont statin
Ambulatory dysfunction, wheelchair-bound at [facility]
Anxiety/depression: Cont Prozac/trazodone
Dementia: cont donepezil
FULL coDE
dvtP: SCDs
Medically cleared for discharge. Case management aware.
Anticipated Discharge: Within 24 hours
Subjective/Interval History
-
Date of Service: July 03, 2023
Feels better today than at admit. Some nausea with morning pills.
Objective Data
-
Labs:
Laboratory Results
07/03/23
05:09
WBC 16.0 H
Hgb 9.5 L
Hct 28.6 L
Plt Count 298
Sodium 132 L
Potassium 3.7
Chloride 100
Carbon Dioxide 27
BUN 23 H
Creatinine 0.6 L
Glucose 123 H
Calcium 8.6
Vital Signs:
Vital Signs
Temp Pulse Resp BP Pulse Ox
98.9 F 66 16 156/67 96
07/03/23 07:10 07/03/23 07:57 07/03/23 07:57 07/03/23 07:10 07/03/23 07:57
I&O
07/02/23 07/03/23 07/04/23
06:59 06:59 06:59
Intake Total 220 / 220 720 / 720
Balance 220 / 220 720 / 720
Review of Systems
-
History Source: Patient
All other systems: Reviewed and negative
Physical Exam
-
General: Well Developed, Well Nourished, No Apparent Distress and Comfortable
HEENT: Normocephalic, Moist Mucous Membranes, Nose Appears Normal and Ears Appear Normal
Respiratory: Clear to Auscultation
Cardiac: Regular Rhythm and S1/S2
GI: Soft, Nontender and Nondistended
Musculoskeletal: No Edema
Skin: Warm and Dry; Negative Rash or Ulcers
Neuro: Awake, Alert, Oriented and AO x 3
Psych: Calm
Data Reviewed
-
Labs: Labs Reviewed by me
[2023-07-03 10:40] VITALS: BP 169/72; PULSE 62
--- NOTE | 2023-07-03 10:40 | CM ---
Met with patient at bedside to discuss discharge plan to SNF
Patient requested that I call his daughter, Stormy; left a voice mail to call back with SNF preferences
[2023-07-03 10:45] VITALS: BP 169/72; PULSE 61; O2SAT 95
[2023-07-03 15:10] VITALS: BP 129/89
[2023-07-03] MEDS: LIPITOR 20 MG PO (21:09)
[2023-07-03] MEDS: ARICEPT 10 MG PO (21:09)
[2023-07-03] MEDS: DESYREL 25 MG PO (21:09)
[2023-07-03 23:15] VITALS: BP 151/68
[2023-07-04 05:57] LABS: Hematocrit 27.7 % (39.0-52.0); Hemoglobin 9.4 g/dL (13.0-18.0); Mean Corp Hgb Conc. 33.9 g/dL (33.0-37.0); Mean Corpuscular Hgb 29.7 pg (27.0-31.0); Mean Corpuscular Volume 87.4 fL (80.0-94.0); Mean Platelet Volume 9.3 fL (7.4-10.4); Platelet Count 303 10^3/uL (130-400); Red Blood Cell Count 3.17 10^6/uL (4.70-6.10); Red Cell Dist. Width 14.5 % (11.5-14.5); White Blood Cell Count 12.6 10^3/uL (4.8-10.8)
[2023-07-04 06:24] LABS: Blood Urea Nitrogen 24 mg/dl (9-20); Carbon Dioxide 28 mmol/L (22-30); Chloride 97 mmol/L (98-107); Estimated Creatinine Clearance 98 ml/min; Glucose 119 mg/dl (70-99); Potassium 3.8 mmol/L (3.5-5.1); Sodium 132 mmol/L (135-145); eGFR > 60.00
[2023-07-04 07:15] VITALS: BP 161/76
[2023-07-04] MEDS: ZINC SULFATE PO ×2 (07:37→07:46)
[2023-07-04] MEDS: PROZAC 20 MG PO (07:37)
[2023-07-04] MEDS: OCUVITE SOFTGEL PO ×3 (07:37→20:02)
[2023-07-04] MEDS: MAGNESIUM OXIDE PO ×3 (07:37→20:02)
[2023-07-04] MEDS: VITAMIN C PO ×2 (07:38→07:48)
[2023-07-04] MEDS: TOPROL XL 50 MG PO (07:38)
[2023-07-04] MEDS: LOW STRENGTH ASPIRIN 81 MG PO (07:38)
[2023-07-04] MEDS: PROTONIX 20 MG PO (07:38)
[2023-07-04] MEDS: VITAMIN B-12 PO ×2 (07:38→07:48)
[2023-07-04] MEDS: ELIQUIS 2.5 MG PO ×2 (07:38→20:03)
[2023-07-04] MEDS: HYDROPHOR 1 APPLIC TOPICAL ×2 (07:39→22:56)
[2023-07-04] MEDS: LAC HYDRIN, AM LACTIN LOTION 1 APPLIC TOPICAL ×2 (07:39→22:56)
[2023-07-04] MEDS: SYMBICORT 160/4.5 MCG INHALER 2 PUFF INH ×2 (07:40→20:32)
--- NOTE | 2023-07-04 09:22 | CM ---
Addendum entered by Elsi Sofia RN 07/04/23 09:36:
Per MD notes; history dementia. Dementia Hx added to PASRR.
Phone call to Celena, [facility]; left message requesting review of referral tomorrow.
Plan follow up with [facility] tomorrow.
Original Note:
Patient from [facility] with Left proximal femur fracture s/p ORIF with gamma nail on 07/01. PT & OT recommend skilled rehab. Per nurse assessment; forgetful.
Spoke with Meryl, daughter; the patient was at [facility] and [facility] in the past. He liked [facility] previously so she would want a referral to them again. Daughter spoke with a few people at [facility] and thinks they will have
an available bed. Reviewed other local SNFs and provided ratings. She does not want any other SNF referrals at this time.
SNF referral placed for [facility].
Plan follow up with [facility] tomorrow.
--- NOTE | 2023-07-04 11:22 | W.PN.UPDATE ---
Update Note
Progress Note Update
Addendum to orthopedic note. Patient may remove dressings at his fpc facility in 7 to 10 days. He is to follow-up in our office in 4 weeks for x-rays. He has absorbable sutures at his incision sites. These do not need to be removed
--- NOTE | 2023-07-04 11:49 | W.PN.HOSP.TC ---
Today's Communication/Plan
-
d/c
Assessment / Plan
Assessment / Plan
78-year-old male with past medical history of atrial fibrillation on Eliquis, hypertension, COPD on home oxygen, diabetes, GERD, hypercholesteremia, ambulatory dysfunction wheelchair-bound at baseline presented to the emergency room after left hip
pain after a fall.�Pain is intermittent and comes in sharp waves.�Any movement makes pain worse.� He was at the dentist on [place] when he was trying to move from his wheelchair to the dentist chair he fell onto his left side and hit his head and
hip.�He denies headache or chest pain or shortness of breath or abdominal pain or shoulder pain or any other injuries, chest pain or shortness of breath or dizziness.� He denies any palpitation or syncope.� He denies any complications with
anesthesia previously.
He sees a help desk consultant in [place].� He is a former smoker.� Denies any alcohol use at this time.
Gen: NAD, AAOx3.
Eyes: EOMI, PERRLA, no scleral icterus.
Neck: supple.
CV: RRR, +S1/S2, no m/r/g.
Resp: CTAB, no rales, wheezes, or rhonchi.
Abd: +BS, soft, NT, ND
Skin: No rashes.
Neuro: CN 2-12 intact, non-focal.
Psych: Normal mood and affect.
Left proximal femur fracture due to mechanical fracture and likely underlying osteoporosis: recovering well.
-s/p ORIF with gamma nail on 07/01/23
-ortho signed off daily care
Asymptomatic chronic sinus bradycardia:
-possibly sick sinus vs metoprolol induced
-EKG showed sinus bradycardia with left bundle branch block which is old
-now on decreased dose metoprolol as per cardiology
Paroxysmal atrial fibrillation: rate in good control at the moment
-now on decreased dose metoprolol as per cardiology
-restarted Eliquis at 2.5mg BID (half dose) as per ortho. Can go back to full dose Eliquis on d/c.
Other problems:
Essential hypertension: Cont BB
COPD: cont Symbicort
DM2, diet controlled
GERD: Continue Protonix
Hypercholesterolemia: cont statin
Ambulatory dysfunction, wheelchair-bound at [facility]
Anxiety/depression: Cont Prozac/trazodone
Dementia: cont donepezil
FULL/SCDs
Remains medically cleared for discharge. Case management aware.
Anticipated Discharge: Today
Subjective/Interval History
-
Date of Service: July 04, 2023
Denies CP/SOB.
Objective Data
-
Labs:
Laboratory Results
07/04/23
05:01
WBC 12.6 H
Hgb 9.4 L
Hct 27.7 L
Plt Count 303
Sodium 132 L
Potassium 3.8
Chloride 97 L
Carbon Dioxide 28
BUN 24 H
Creatinine 0.6 L
Glucose 119 H
Calcium 9.0
Vital Signs:
Vital Signs
Temp Pulse Resp BP Pulse Ox
98.4 F 66 16 161/76 92
07/04/23 07:15 07/04/23 07:41 07/04/23 07:41 07/04/23 07:38 07/04/23 07:41
I&O
07/03/23 07/04/23 07/05/23
06:59 06:59 06:59
Intake Total 720 / 720 240 / 240 960 / 960
Output Total 250 / 250 800 / 800
Balance 720 / 720 -10 / -10 160 / 160
[2023-07-04 15:10] VITALS: BP 139/66
--- NOTE | 2023-07-04 15:25 | PTCARENOTE ---
Addendum entered by Yomaira Sorensen RN 07/04/23 15:38:
Dr. Grover reply...To be expected. He is back on his Eliquis. Out than in. You can reinforce the aquacel with ABD�s if needed
Original Note:
pts dressing (Aquacel) was saturated. And as nurse was cleaning the site it was actively slowly oozing.Notified Dr. Myles. Also his Hg has been trending down. New 6in Aquacel applied.
[2023-07-04] MEDS: TYLENOL PO (20:02)
[2023-07-04] MEDS: ARICEPT 10 MG PO (22:52)
[2023-07-04] MEDS: DESYREL 25 MG PO (22:52)
[2023-07-04] MEDS: LIPITOR 20 MG PO (22:53)
[2023-07-04 23:00] VITALS: BP 137/70
[2023-07-05 05:14] LABS: Hematocrit 27.4 % (39.0-52.0); Hemoglobin 9.3 g/dL (13.0-18.0); Mean Corp Hgb Conc. 33.9 g/dL (33.0-37.0); Mean Corpuscular Hgb 30.1 pg (27.0-31.0); Mean Corpuscular Volume 88.7 fL (80.0-94.0); Mean Platelet Volume 9.3 fL (7.4-10.4); Platelet Count 310 10^3/uL (130-400); Red Blood Cell Count 3.09 10^6/uL (4.70-6.10); Red Cell Dist. Width 14.2 % (11.5-14.5); White Blood Cell Count 12.4 10^3/uL (4.8-10.8)
[2023-07-05 05:30] LABS: Blood Urea Nitrogen 24 mg/dl (9-20); Calcium 8.6 mg/dl (8.4-10.2); Carbon Dioxide 25 mmol/L (22-30); Chloride 101 mmol/L (98-107); Estimated Creatinine Clearance 98 ml/min; Glucose 109 mg/dl (70-99); Sodium 131 mmol/L (135-145); eGFR > 60.00
[2023-07-05] MEDS: SYMBICORT 160/4.5 MCG INHALER 2 PUFF INH (07:28)
--- NOTE | 2023-07-05 07:53 | W.PN.HOSP.TC ---
Addendum entered and electronically signed by Dre Ronquillo MD 07/05/23 14:29:
Acute anemia multifactorial due to hemodilution and acute blood loss due to surgery
Addendum entered and electronically signed by Dre Ronquillo MD 07/05/23 11:18:
Total time spent on d/c = 33 min. This included today's physical exam, progress note, review of laboratory and diagnostic data, preparation of discharge documents and prescriptions, and discussions about the pt's hospital course and discharge plan
with the patient and other remote medical coder involved in the patient's care.
Original Note:
Today's Communication/Plan
-
d/c
Assessment / Plan
Assessment / Plan
78-year-old male with past medical history of atrial fibrillation on Eliquis, hypertension, COPD on home oxygen, diabetes, GERD, hypercholesteremia, ambulatory dysfunction wheelchair-bound at baseline presented to the emergency room after left hip
pain after a fall.�Pain is intermittent and comes in sharp waves.�Any movement makes pain worse.� He was at the dentist on [place] when he was trying to move from his wheelchair to the dentist chair he fell onto his left side and hit his head and
hip.�He denies headache or chest pain or shortness of breath or abdominal pain or shoulder pain or any other injuries, chest pain or shortness of breath or dizziness.� He denies any palpitation or syncope.� He denies any complications with
anesthesia previously.
He sees a registered mail clerk in [place].� He is a former smoker.� Denies any alcohol use at this time.
Gen: NAD, AAOx3.
Eyes: EOMI, PERRLA, no scleral icterus.
Neck: supple.
CV: remains RRR, +S1/S2, no m/r/g.
Resp: remains CTAB, no rales, wheezes, or rhonchi.
Abd: +BS, soft, NT, ND
Skin: No rashes.
Neuro: CN 2-12 intact, non-focal.
Psych: Normal mood and affect.
Left proximal femur fracture due to mechanical fracture and likely underlying osteoporosis:
-s/p ORIF with gamma nail on 07/01/23
-ortho signed off daily care
Asymptomatic chronic sinus bradycardia:
-possibly sick sinus vs metoprolol induced
-EKG showed sinus bradycardia with left bundle branch block which is old
-now on decreased dose metoprolol as per cardiology
Paroxysmal atrial fibrillation: rate in good control at the moment
-now on decreased dose metoprolol as per cardiology
-restarted Eliquis at 2.5mg BID (half dose) as per ortho. Can go back to full dose Eliquis on d/c.
Other problems:
Essential hypertension: Cont BB
COPD: cont Symbicort
DM2, diet controlled
GERD: Continue Protonix
Hypercholesterolemia: cont statin
Ambulatory dysfunction, wheelchair-bound at [facility]
Anxiety/depression: Cont Prozac/trazodone
Dementia: cont donepezil
FULL/SCDs
Remains medically cleared for discharge. Case management aware.
Anticipated Discharge: Today
Subjective/Interval History
-
Date of Service: July 05, 2023
Denies CP/SOB.
Objective Data
-
Labs:
Laboratory Results
07/05/23
04:39
WBC 12.4 H
Hgb 9.3 L
Hct 27.4 L
Plt Count 310
Sodium 131 L
Potassium 4.0
Chloride 101
Carbon Dioxide 25
BUN 24 H
Creatinine 0.6 L
Glucose 109 H
Calcium 8.6
Vital Signs:
Vital Signs
Temp Pulse Resp BP Pulse Ox
98.3 F 61 16 137/70 96
07/04/23 23:00 07/05/23 07:34 07/05/23 07:34 07/04/23 23:00 07/05/23 07:34
I&O
07/04/23 07/05/23 07/06/23
06:59 06:59 06:59
Intake Total 240 / 240 2200 / 2200
Output Total 250 / 250 1250 / 1250
Balance -10 / -10 950 / 950
[2023-07-05 08:10] VITALS: BP 150/65
[2023-07-05] MEDS: TOPROL XL 50 MG PO (08:54)
[2023-07-05] MEDS: LOW STRENGTH ASPIRIN 81 MG PO (08:54)
[2023-07-05] MEDS: PROZAC 20 MG PO (08:54)
[2023-07-05] MEDS: PROTONIX 20 MG PO (08:54)
[2023-07-05] MEDS: ELIQUIS 2.5 MG PO (08:55)
[2023-07-05] MEDS: LAC HYDRIN, AM LACTIN LOTION 1 APPLIC TOPICAL (08:55)
[2023-07-05] MEDS: HYDROPHOR 1 APPLIC TOPICAL (08:56)
[2023-07-05] MEDS: MIRALAX PO (08:56)
[2023-07-05] MEDS: MAGNESIUM OXIDE PO (09:00)
[2023-07-05] MEDS: OCUVITE SOFTGEL PO (09:00)
[2023-07-05] MEDS: ZINC SULFATE PO (09:01)
[2023-07-05] MEDS: VITAMIN B-12 PO (09:01)
[2023-07-05] MEDS: VITAMIN C PO (09:01)
--- NOTE | 2023-07-05 11:20 | W.DCSUMMARY ---
Discharge Summary
Discharge Data
Date of Admission: 06/29/23
Date of Discharge: 07/05/23
-
Pending Results: No
Hospital Course
Primary diagnoses:
Left proximal femur fracture due to mechanical fracture and likely underlying osteoporosis s/p open reduction and internal fixation with gamma nail on 07/01/23
Asymptomatic chronic sinus bradycardia
Secondary diagnoses:
Paroxysmal atrial fibrillation
Essential hypertension
Chronic obstructive pulmonary disease
Diet controlled type 2 diabetes mellitus
Gastroesophageal reflux disease
Hypercholesterolemia
Ambulatory dysfunction, wheelchair-bound at baseline
Anxiety
Depression
Dementia
Consultants:
Orthopedics
Cardiology
Imaging:
CT brain: No acute intracranial abnormality.
L hip XRay: Left proximal femoral fracture, intertrochanteric/subtrochanteric.
Hospital course: 78-year-old male who with a fall resulting in a left hip fracture examined and H&P done on admission. The patient underwent open reduction internal fixation with gamma nail on July 01, 2023 and tolerated the procedure well.
While hospitalized he had asymptomatic chronic sinus bradycardia. He was seen in consultation by cardiology. EKG showed sinus bradycardia with left bundle branch block which was old. Patient possibly had sick sinus syndrome versus beta-winifred
induced bradycardia. His beta-winifred dose was decreased as per cardiology. He was discharged in medically stable condition.
Discharge Plan
-
Patient Disposition: Snf/SNF
Discharge Diagnosis/Procedures: Left proximal femur fracture due to mechanical fracture and likely underlying osteoporosis s/p open reduction and internal fixation with gamma nail on 07/01/23
Condition: Good
Diet: Diabetic, Carb Controlled
Activity: With assistance
Driving Restrictions: No driving
Blood Work: CBC and BMP in 1 week
Referrals:
Ofe Christie, DO [Family Provider] - in less than 1 week
Prescriptions:
New
metoprolol succinate 50 mg Tablet Extended Release 24 Hr
50 mg PO DAILY Qty: 0 0RF
Continued
aspirin 81 MG tablet,chewable
81 mg PO DAILY
acetaminophen 325 MG tablet
650 mg PO Q4HPRN PRN (Reason: moderate pain/fever)
polyethylene glycol 3350 17 GRAMS powder in packet
17 grams PO MOWEFR
Eliquis 5 MG tablet
5 mg PO BID
magnesium oxide 500 MG tablet
500 mg PO BID 0RF
magnesium hydroxide [Milk of Magnesia] 400 mg/5 mL Suspension
30 ml PO HS PRN (Reason: constipation)
ascorbic acid (vitamin C) [Vitamin C] 500 mg Tablet
500 mg PO DAILY
fluoxetine 20 mg Capsule
20 mg PO DAILY
trazodone 50 mg Tablet
25 mg PO HS
atorvastatin 20 mg tablet
20 mg PO HS
donepezil 10 mg tablet
10 mg PO HS
cyanocobalamin (vitamin B-12) [Vitamin B-12] 1,000 mcg Tablet
1,000 mcg PO DAILY
dextromethorphan-guaifenesin 10-100 mg/5 mL Syrup
10 ml PO Q4H PRN (Reason: cough)
Aquaphor Ointment
1 applic TOPICAL BID
Rx Instructions:
apply to left heel
pantoprazole 20 mg tablet,delayed release (DR/EC)
20 mg PO DAILY
zinc sulfate 50 mg zinc (220 mg) Tablet
50 mg PO DAILY
ammonium lactate 12 % Cream
1 applic TOPICAL BID
Rx Instructions:
apply to heel
cholecalciferol (vitamin D3) [Vitamin D3] 125 mcg (5,000 unit) Tablet
250 mcg PO MONTHLY
Rx Instructions:
every Wednesday
fluticasone furoate-vilanterol [Breo Ellipta] 100-25 mcg/dose blister with device
1 inh INHALATION R DAILY
PreserVision AREDS-2 250-90-40-1 mg Capsule
1 tab PO BID
Discontinued
metoprolol succinate 100 MG tablet extended release 24 hr
100 mg PO DAILY
lorazepam 1 mg tablet
1 mg PO DAILY PRN (Reason: prior to MRI)
Discharge Orders:
Discharge Patient (As Directed); Ordered 07/05/23
Ordered By: Dre Ronquillo
--- NOTE | 2023-07-05 11:20 | CM ---
CM following re: discharge planning.
Reviewed pt's chart, met with pt.
According to pt is medically stable to be discharged today. Both pt and his family are aware, expressed their agreement with discharge. IMM reviewed, placed on chart, pt has a copy.
CM spoke to [facility] academy director and she confirmed they do have a bed available and pt is accepted for admission today.
arranged transportation with Acute care ambulance, lemon picker time 1:00 p.m. PMNC completed, left with
For nursing report please call [facility] at [phone]
Discharge instructions fax: [phone].
Both pt, his family, RN, [facility] academy director are aware of discharge time.
D/CV plan: [facility] SNF.
--- NOTE | 2023-07-05 13:08 | PN.CDI ---
CDI
- -
CDI:
Physician Documentation Request
Admit Date: 06/29/23 18:25
Dear Doctor Shima,
Patient admitted for hip fracture.
07/01 Patient underwent ORIF of left hip with gamma nail.
Laboratory Tests
06/29/23 07/05/23
17:01 04:39
Hgb 12.0 L 9.3 L
Hct 37.2 L 27.4 L
Based on the above, could you clarify in the progress notes, the appropriate diagnosis, if significant, that supports the above abnormalities and additional evaluation, monitoring and/or treatment rendered:
Acute anemia multifactorial due to hemodilution and blood loss
Acute blood loss anemia
Hemodilution
Other
Use of terms such as suspected, likely, concern for, or probable (associated with a specific diagnosis that is being evaluated, monitored, or treated as if it exists) are acceptable and can be coded in the inpatient setting, when documented at the
time of discharge.
Thank you,
Zina Gallegos
CDI Specialist
Please use your independent medical judgment in providing your response.
== END 2023-07-05 13:03 | DRG 481 ==
LOC: 2 SOUTH 18:25
PROVIDERS: Internal Medicine; Physician Assistant; ADMITTING PHYSICIAN Hospitalist; ATTENDING PHYSICIAN Internal Medicine; CONSULT PHYSICIAN Orthopaedic Surgery; EMERGENCY PHYSICIAN Emergency Medicine; FAMILY PHYSICIAN Hospitalist; OTHER PHYSICIAN Internal Medicine
PROC: 0QS704Z Reposition Left Upper Femur with Internal Fixation Device, Open Approach (ICD-10-PCS; 2023-07-01)
DX: S72.002A Fracture of unspecified part of neck of left femur, initial encounter for closed fracture (principal); D62 Acute posthemorrhagic anemia; F03.93 Unspecified dementia, unspecified severity, with mood disturbance; F03.94 Unspecified dementia, unspecified severity, with anxiety; I42.8 Other cardiomyopathies; M80.052A Age-related osteoporosis with current pathological fracture, left femur, initial encounter for fracture; S72.142A Displaced intertrochanteric fracture of left femur, initial encounter for closed fracture; Z87.891 Personal history of nicotine dependence; I44.7 Left bundle-branch block, unspecified; I48.0 Paroxysmal atrial fibrillation; I10 Essential (primary) hypertension; J44.9 Chronic obstructive pulmonary disease, unspecified; E11.9 Type 2 diabetes mellitus without complications; K21.9 Gastro-esophageal reflux disease without esophagitis; E78.00 Pure hypercholesterolemia, unspecified; F32.A Depression, unspecified; Z79.01 Long term (current) use of anticoagulants; Z79.82 Long term (current) use of aspirin; Z99.3 Dependence on wheelchair; I73.9 Peripheral vascular disease, unspecified
CPT/HCPCS: 70450; 73130; 73502; 76000; 80048; 80053; 83735; 85025; 85027; 86850; 86900; 86901; 87070; 93005; 94640; 96374; 97110; 97163; 97167; 97530; 97535; 99285; C1713; C1769

== ENCOUNTER → 2023-07-12 11:32 | Outpatient (REF) | payer OTHER, MEDICARE, SELFPAY ==
[2023-07-12 12:05] LABS: % Basophils 0.4 % (0-2); % Eosinophils 3.2 % (0-6); % Immature Granulocytes 0.9 % (0-0.5); % Lymphocytes 15.9 % (20.5-51.1); % Monocytes 8.9 % (1.7-9.3); % Neutrophils 70.7 % (42.2-75.2); Absolute Eosinophils 0.3 10^3/uL (0-0.7); Absolute Immature Granulocytes 0.1 10^3/uL (0-0.05); Absolute Lymphocytes 1.7 10^3/uL (1.2-3.4); Absolute Neutrophils 7.6 10^3/uL (1.4-6.5); Hematocrit 25.6 % (39.0-52.0); Mean Corp Hgb Conc. 31.3 g/dL (33.0-37.0); Mean Corpuscular Hgb 29.9 pg (27.0-31.0); Mean Corpuscular Volume 95.5 fL (80.0-94.0); Mean Platelet Volume 9.5 fL (7.4-10.4); Nucleated Red Blood Cells % 0 % (-); Platelet Count 399 10^3/uL (130-400); Red Blood Cell Count 2.68 10^6/uL (4.70-6.10); Red Cell Dist. Width 15.9 % (11.5-14.5); White Blood Cell Count 10.7 10^3/uL (4.8-10.8)
[2023-07-12 12:33] LABS: Blood Urea Nitrogen 18 mg/dl (9-20); Calcium 8.3 mg/dl (8.4-10.2); Carbon Dioxide 27 mmol/L (22-30); Chloride 105 mmol/L (98-107); Glucose 89 mg/dl (70-99); Magnesium 2.1 mg/dl (1.6-2.3); Potassium 4.1 mmol/L (3.5-5.1); Sodium 134 mmol/L (135-145); eGFR > 60.00
[2023-07-12 13:11] LABS: Glycohemoglobin (HgbA1c) 5.7 % (4.0-5.6)
== END ==
LOC: OLABN 11:32
PROVIDERS: ATTENDING PHYSICIAN Student in an Organized Health Care Education/Training Program
DX: D63.8 Anemia in other chronic diseases classified elsewhere (principal); E83.42 Hypomagnesemia; E11.9 Type 2 diabetes mellitus without complications
CPT/HCPCS: 36415; 80048; 83036; 83735; 85025

== ENCOUNTER → 2023-07-14 10:09 | Outpatient (REF) | payer OTHER, MEDICARE, SELFPAY ==
[2023-07-14 10:40] LABS: % Basophils 0.4 % (0-2); % Eosinophils 4.1 % (0-6); % Immature Granulocytes 0.8 % (0-0.5); % Lymphocytes 12.3 % (20.5-51.1); % Monocytes 8.3 % (1.7-9.3); % Neutrophils 74.1 % (42.2-75.2); Absolute Basophils 0.1 10^3/uL (0-0.2); Absolute Eosinophils 0.5 10^3/uL (0-0.7); Absolute Immature Granulocytes 0.1 10^3/uL (0-0.05); Absolute Lymphocytes 1.5 10^3/uL (1.2-3.4); Absolute Neutrophils 8.9 10^3/uL (1.4-6.5); Hemoglobin 7.9 g/dL (13.0-18.0); Mean Corp Hgb Conc. 32.9 g/dL (33.0-37.0); Mean Corpuscular Hgb 30.4 pg (27.0-31.0); Mean Corpuscular Volume 92.3 fL (80.0-94.0); Mean Platelet Volume 9.3 fL (7.4-10.4); Nucleated Red Blood Cells % 0 % (-); Platelet Count 399 10^3/uL (130-400); Red Cell Dist. Width 15.9 % (11.5-14.5)
== END ==
LOC: OLABN 10:09
PROVIDERS: ATTENDING PHYSICIAN Student in an Organized Health Care Education/Training Program
DX: I95.0 Idiopathic hypotension (principal)
CPT/HCPCS: 36415; 85025

== ENCOUNTER → 2023-09-30 12:49 | Outpatient (REF) | payer MEDICARE, OTHER, SELFPAY ==
[2023-10-01 12:57] LABS: Urine Albumin Negative (Neg - Trace); Urine Bilirubin Negative (Negative); Urine Character Clear (Clear); Urine Color Yellow; Urine Glucose Negative (Negative); Urine Ketone Negative (Negative); Urine Leukocyte Negative (Negative); Urine Nitrite Negative (Negative); Urine Occult Blood Negative (Negative); Urine Urobilinogen Negative (Neg - 1+); Urine pH 6.5 (5.0-9.0)
== END ==
LOC: OLABSOL 12:49
PROVIDERS: ATTENDING PHYSICIAN Nurse Practitioner Gerontology
DX: D64.9 Anemia, unspecified (principal); R94.4 Abnormal results of kidney function studies; E55.9 Vitamin D deficiency, unspecified; E03.9 Hypothyroidism, unspecified; N39.0 Urinary tract infection, site not specified
CPT/HCPCS: 81003; 87086

== ENCOUNTER → 2023-10-01 11:56 | Outpatient (REF) | payer MEDICARE, OTHER, SELFPAY ==
[2023-10-01 12:52] LABS: % Basophils 0.8 % (0-2); % Eosinophils 5.2 % (0-6); % Immature Granulocytes 0.3 % (0-0.5); % Lymphocytes 22.6 % (20.5-51.1); % Monocytes 12.8 % (1.7-9.3); % Neutrophils 58.3 % (42.2-75.2); Absolute Basophils 0.1 10^3/uL (0-0.2); Absolute Eosinophils 0.4 10^3/uL (0-0.7); Absolute Lymphocytes 1.7 10^3/uL (1.2-3.4); Absolute Neutrophils 4.3 10^3/uL (1.4-6.5); Hematocrit 32.2 % (39.0-52.0); Hemoglobin 10.1 g/dL (13.0-18.0); Mean Corp Hgb Conc. 31.4 g/dL (33.0-37.0); Mean Corpuscular Hgb 28.1 pg (27.0-31.0); Mean Corpuscular Volume 89.4 fL (80.0-94.0); Mean Platelet Volume 9.6 fL (7.4-10.4); Nucleated Red Blood Cells % 0 % (-); Platelet Count 267 10^3/uL (130-400); Red Cell Dist. Width 13.9 % (11.5-14.5); White Blood Cell Count 7.4 10^3/uL (4.8-10.8)
[2023-10-01 13:04] LABS: ALT (SGPT) 11 U/L (0-50); AST (SGOT) 16 U/L (17-59); Albumin 3.5 g/dl (3.5-5.0); Alkaline Phosphatase 118 U/L (38-126); Blood Urea Nitrogen 17 mg/dl (9-20); Calcium 9.3 mg/dl (8.4-10.2); Carbon Dioxide 27 mmol/L (22-30); Chloride 106 mmol/L (98-107); Glucose 105 mg/dl (70-99); Magnesium 2.3 mg/dl (1.6-2.3); Potassium 4.1 mmol/L (3.5-5.1); Sodium 139 mmol/L (135-145); Total Bilirubin 0.3 mg/dl (0.2-1.3); eGFR > 60.00
[2023-10-01 13:23] LABS: Free T4 1.14 ng/dl (0.78-2.19); Vitamin D, 25-OH*** 38.8 ng/mL (30-80)
[2023-10-01 13:37] LABS: TSH 0.61 uIU/ml (0.47-4.68)
== END ==
LOC: OLABSOL 11:56
PROVIDERS: ATTENDING PHYSICIAN Nurse Practitioner Gerontology
DX: D64.9 Anemia, unspecified (principal); R94.4 Abnormal results of kidney function studies; E55.9 Vitamin D deficiency, unspecified; E03.9 Hypothyroidism, unspecified
CPT/HCPCS: 36415; 80053; 82306; 83735; 84439; 84443; 85025

== ENCOUNTER 2023-10-11 16:07 | Emergency (ER) | payer MEDICARE, OTHER, SELFPAY ==
[2023-10-11 16:10] VITALS: BP 119/62
[2023-10-11 16:25] LABS: Hematocrit 33.8 % (39.0-52.0); Mean Corp Hgb Conc. 32.5 g/dL (33.0-37.0); Mean Corpuscular Hgb 28.4 pg (27.0-31.0); Mean Corpuscular Volume 87.1 fL (80.0-94.0); Platelet Count 249 10^3/uL (130-400); Red Blood Cell Count 3.88 10^6/uL (4.70-6.10); Red Cell Dist. Width 14.2 % (11.5-14.5); White Blood Cell Count 9.4 10^3/uL (4.8-10.8)
[2023-10-11 16:48] LABS: ALT (SGPT) 16 U/L (0-50); AST (SGOT) 20 U/L (17-59); Albumin 4.1 g/dl (3.5-5.0); Alkaline Phosphatase 104 U/L (38-126); Blood Urea Nitrogen 20 mg/dl (9-20); Calcium 9.8 mg/dl (8.4-10.2); Carbon Dioxide 26 mmol/L (22-30); Chloride 105 mmol/L (98-107); Glucose 119 mg/dl (70-99); Sodium 140 mmol/L (135-145); Total Bilirubin 0.4 mg/dl (0.2-1.3); eGFR > 60.00
--- NOTE | 2023-10-11 16:56 | ED.GENMED ---
History of Present Illness
General
Chief Complaint: Skin Problem
Source: patient, records and previous hospital records
Exam Limitations: none
Time Seen by Provider: 10/11/23 16:12
Nursing documentation reviewed up to this point in time: agreed with
Travel History
Have you had any contact with someone who has COVID-19?: No
Do you have any symptoms of coronavirus? Fever > 100 degrees, chills, cough, shortness of breath, sore throat, loss of taste or smell, muscle aches, or headache?: No
History of Present Illness
History of Present Illness:
78-year-old male for [facility] presents for evaluation of wound on his left heel onset a week or so ago, did not tolerate an offloading shoe he gets around in a wheelchair also ambulates with therapist, apparently was seen by podiatry
started on Levaquin had increased pain through the weekend no drainage some redness and swelling, no fevers no nausea or vomiting
Past History
Past History
ED Past Medical History: Cancer, COPD, GERD, HTN, Hypercholesterolemia, NIDDM and Other
ED Past Surgical History: Orthopedic and Other (Cataract surgery)
Social History
Tobacco: Former smoker
Alcohol: Daily
Drug: None
Living: alone
Employment: Retired
Family History
Family History: Other (Dad with Alzheimer's) and Unable to obtain
Review of Systems
Review of Systems
All Other Systems: Not applicable
Constitutional: Denies fever, fatigue or chills
EENT: Reports no symptoms
Respiratory: Reports no symptoms
Cardiac: Reports no symptoms
ABD/GI: Reports no symptoms
: Reports no symptoms
Musculoskeletal: Reports other (Swelling pain left heel); Denies joint pain
Hematologic/Lymphatic: Reports no symptoms
Phy Exam
Physical Exam
Physical Exam:
Physical Exam
General: Nontoxic chronically ill male
Neck: No jaundice
Heart: s1/s2 regular rate and rhythm, no murmur. equal radial pulses.
Lungs: no acute respiratory distress.
Neuro: alert and oriented. no focal neurological deficits
Skin: no rash
Psychiatric: well kept. interactive and cooperative
Extremities: Left heel 0.5 x 2 cm pressure ulcer with surrounding
Course
Orders/Labs/Results
Orders:
Orders
10/11/23 16:19
C-Reactive Protein Urgent
Comment: ESR & CRP ADDED ON BY FLOOR 4:45PM 10-11-23
CMP [Comprehensive Metabolic Panel] Urgent
Complete Blood Count/No Diff Urgent
Erythrocyte Sed Rate Urgent
10/11/23 16:43
Foot, Left 3 View [CR Foot - Left Min 3 Views] Urgent
Comment:
Reason For Exam: swelling
10/11/23 16:44
Add On- LAB Urgent
Tests Added?: esr/crp
Abnormal Lab Results
10/11/23
16:19
RBC 3.88 L 10^6/uL
(4.70-6.10)
Hgb 11.0 L g/dL
(13.0-18.0)
Hct 33.8 L %
(39.0-52.0)
MCHC 32.5 L g/dL
(33.0-37.0)
ESR 26 H mm/hour
(0-20)
Glucose 119 H mg/dl
(70-99)
C-Reactive Protein 20.30 H mg/L
(0.0-10.00)
10/11/23 16:19
10/11/23 16:19
Vital Signs
Initial and Last Documented VS:
Initial Vital Signs
Temp Pulse Resp BP Pulse Ox
98.3 F 54 16 119/62 100
10/11/23 16:10 10/11/23 16:10 10/11/23 16:10 10/11/23 16:10 10/11/23 16:10
Last Documented Vital Signs
Temp Pulse Resp BP Pulse Ox
98.3 F 54 16 119/62 100
10/11/23 16:10 10/11/23 16:10 10/11/23 16:10 10/11/23 16:10 10/11/23 16:10
MDM/Problems Addressed
Differential Diagnosis Includes:
Pressure ulcer cellulitis osteomyelitis
MDM/Problems Addressed:
Wound on left heel
Chronic conditions affecting care: DM, Arrhythmia and Neurological disorder
Acute Exacerbation and/or Progression of Chronic Illness: DM, Arrhythmia and Neurological disorder
*Radiology
Radiology exam reviewed: preliminary read by ED provider
*Pulse Oximetry
Patient hypoxic: no
*Critical Care Note
Total Time (30-74mins, 75-104mins- exclusive of procedures): Not Applicable
Update Note
Update Note:
5 PM labs are noted we will check x-ray inflammatory markers has been on Levaquin
7 PM x-ray report noted patient laughing in no acute distress he is anxious to go home
Will switch antibiotics he has had some foam placed on the area by nursing
ED Attending Note
-
Portions of this chart may have been created with voice recognition software.� Occasional wrong word or��sound alike� substitutions may have occurred due to the inherent limitations of voice recognition software.
Discharge Plan
Departure
Patient Disposition: Home (Routine Discharge)
Date of Disposition: 10/11/23
Time of Disposition: 19:12
Patient with high blood pressure during this ER visit?: No
Condition: Good
Covid-19: Not Applicable
Discharge Problem:
Cellulitis
Instructions: Cellulitis (Skin Infection), Adult (DC), [facility] for Wound Healing-Wounds
Prescriptions:
New
doxycycline hyclate 100 mg tablet
100 mg PO BID Qty: 20 0RF
Triple Antibiotic 3.5mg-400 unit- 5,000 unit/gram ointment
1 applic topical BID Qty: 9.35 0RF
No Action
aspirin 81 MG tablet,chewable
81 mg PO DAILY
acetaminophen 325 MG tablet
650 mg PO Q4HPRN PRN (Reason: mild pain/fever)
polyethylene glycol 3350 17 GRAMS powder in packet
17 grams PO MOWEFR
Eliquis 5 MG tablet
5 mg PO BID
magnesium oxide 500 MG tablet
500 mg PO BID 0RF
magnesium hydroxide [Milk of Magnesia] 400 mg/5 mL Suspension
30 ml PO HS PRN (Reason: constipation)
ascorbic acid (vitamin C) [Vitamin C] 500 mg Tablet
500 mg PO DAILY
fluoxetine 20 mg Capsule
20 mg PO DAILY
trazodone 50 mg Tablet
25 mg PO HS
atorvastatin 20 mg tablet
20 mg PO HS
donepezil 10 mg tablet
10 mg PO HS
cyanocobalamin (vitamin B-12) [Vitamin B-12] 1,000 mcg Tablet
1,000 mcg PO DAILY
dextromethorphan-guaifenesin 10-100 mg/5 mL Syrup
10 ml PO Q4H PRN (Reason: cough)
pantoprazole 20 mg tablet,delayed release (DR/EC)
20 mg PO DAILY
zinc sulfate 50 mg zinc (220 mg) Tablet
50 mg PO DAILY
ammonium lactate 12 % Cream
1 applic TOPICAL BID
Rx Instructions:
apply to left heel
cholecalciferol (vitamin D3) [Vitamin D3] 125 mcg (5,000 unit) Tablet
250 mcg PO MONTHLY
Rx Instructions:
every Wednesday
fluticasone furoate-vilanterol [Breo Ellipta] 100-25 mcg/dose blister with device
1 inh INHALATION R DAILY
PreserVision AREDS-2 250-90-40-1 mg Capsule
1 tab PO BID
metoprolol succinate 50 mg Tablet Extended Release 24 Hr
50 mg PO DAILY Qty: 0 0RF
tramadol 50 mg Tablet
50 mg PO DAILY PRN (Reason: moderate pain)
acetaminophen 500 mg Tablet
1,000 mg PO Q12H
midodrine 2.5 mg Tablet
2.5 mg PO 4-8XD
levofloxacin 500 mg Tablet
500 mg PO DAILY
Referrals:
NONE,* [Family Provider] -
[facility] [[facility]] - Next open appointment
Tammy Lanza DPM [Active] - Next open appointment
Activity Restrictions/Additional Instructions:
Stop Levaquin and start doxycycline twice a day
Use antibiotic ointment twice a day
Interventions
Interventions:
*Risk Screen - Suicide Last Done: 10/11/23 16:10
*General Assessment Last Done: 10/11/23 16:10
*Neglect/Abuse Screening Last Done: 10/11/23 16:10
*ED COVID-19 Vaccine History Last Done: 10/11/23 16:10
ED-Skin Assessment Last Done: 10/11/23 16:10
Discharge Date and Time
Print Language: MALTESE
[2023-10-11 17:04] LABS: Erythrocyte Sed Rate 26 mm/hour (0-20)
[2023-10-11 20:45] VITALS: BP 123/83
== END 2023-10-11 21:15 | disposition home or self-care (01) ==
LOC: EMR 16:07
PROVIDERS: EMERGENCY PHYSICIAN Emergency Medicine
DX: L03.116 Cellulitis of left lower limb (principal)
CPT/HCPCS: 99284; 73630; 80053; 85027; 85652; 86140

== ENCOUNTER → 2023-10-27 17:40 | Outpatient (REF) | payer MEDICARE, OTHER, SELFPAY ==
[2023-10-27 18:41] LABS: Urine Albumin Negative (Neg - Trace); Urine Bilirubin Negative (Negative); Urine Character Clear (Clear); Urine Color Yellow; Urine Glucose Negative (Negative); Urine Ketone Negative (Negative); Urine Leukocyte Negative (Negative); Urine Nitrite Negative (Negative); Urine Occult Blood Negative (Negative); Urine Urobilinogen Negative (Neg - 1+); Urine pH 6.5 (5.0-9.0)
== END ==
LOC: CLAB 17:40
PROVIDERS: ATTENDING PHYSICIAN Nurse Practitioner Gerontology
DX: N39.0 Urinary tract infection, site not specified (principal)
CPT/HCPCS: 81003; 87086

== ENCOUNTER → 2023-11-09 14:17 | Outpatient (REF) | payer MEDICARE, OTHER, SELFPAY | LOC: RAD 14:17 | PROVIDERS: ATTENDING PHYSICIAN Nurse Practitioner Adult Health; FAMILY PHYSICIAN Hospitalist | DX: I63.9 Cerebral infarction, unspecified (principal); I65.23 Occlusion and stenosis of bilateral carotid arteries | CPT/HCPCS: 93880 ==

== ENCOUNTER → 2023-12-16 17:07 | Outpatient (REF) | payer MEDICARE, OTHER, SELFPAY ==
[2023-12-17 12:13] LABS: Urine Albumin Negative (Neg - Trace); Urine Bilirubin Negative (Negative); Urine Character Clear (Clear); Urine Color Yellow; Urine Glucose Negative (Negative); Urine Ketone Trace (Negative); Urine Leukocyte Trace (Negative); Urine Nitrite Negative (Negative); Urine Occult Blood Negative (Negative); Urine Urobilinogen Negative (Neg - 1+)
[2023-12-17 13:38] LABS: Urine Mucus Many
[2023-12-17 13:40] LABS: Urine Amorphous Seen
[2023-12-17 13:41] LABS: Urine Red Blood Cell 0-2 /HPF (0-2); Urine White Cell 0-2 /HPF (0-5)
== END ==
LOC: OLABSOL 17:07
PROVIDERS: ATTENDING PHYSICIAN Nurse Practitioner Gerontology
DX: D64.9 Anemia, unspecified (principal); R94.4 Abnormal results of kidney function studies; N39.0 Urinary tract infection, site not specified
CPT/HCPCS: 36415; 81003; 81015; 87086

== ENCOUNTER → 2023-12-17 09:49 | Outpatient (REF) | payer MEDICARE, OTHER, SELFPAY ==
[2023-12-17 12:34] LABS: % Basophils 0.9 % (0-2); % Eosinophils 6.2 % (0-6); % Immature Granulocytes 0.2 % (0-0.5); % Lymphocytes 18.8 % (20.5-51.1); % Monocytes 11.8 % (1.7-9.3); % Neutrophils 62.1 % (42.2-75.2); Absolute Basophils 0.1 10^3/uL (0-0.2); Absolute Eosinophils 0.5 10^3/uL (0-0.7); Absolute Lymphocytes 1.7 10^3/uL (1.2-3.4); Absolute Neutrophils 5.5 10^3/uL (1.4-6.5); Hematocrit 37.7 % (39.0-52.0); Hemoglobin 11.8 g/dL (13.0-18.0); Mean Corp Hgb Conc. 31.3 g/dL (33.0-37.0); Mean Corpuscular Hgb 27.7 pg (27.0-31.0); Mean Corpuscular Volume 88.5 fL (80.0-94.0); Mean Platelet Volume 10.2 fL (7.4-10.4); Nucleated Red Blood Cells % 0 % (-); Platelet Count 338 10^3/uL (130-400); Red Blood Cell Count 4.26 10^6/uL (4.70-6.10); Red Cell Dist. Width 15.4 % (11.5-14.5); White Blood Cell Count 8.8 10^3/uL (4.8-10.8)
[2023-12-17 12:50] LABS: ALT (SGPT) 17 U/L (0-50); AST (SGOT) 22 U/L (17-59); Albumin 4.3 g/dl (3.5-5.0); Alkaline Phosphatase 114 U/L (38-126); Blood Urea Nitrogen 16 mg/dl (9-20); Carbon Dioxide 29 mmol/L (22-30); Chloride 103 mmol/L (98-107); Glucose 120 mg/dl (70-99); Potassium 4.4 mmol/L (3.5-5.1); Sodium 142 mmol/L (135-145); Total Bilirubin 0.4 mg/dl (0.2-1.3); Total Protein 7.1 g/dl (6.3-8.2); eGFR > 60.00
== END ==
LOC: OLABSOL 09:49
PROVIDERS: ATTENDING PHYSICIAN Nurse Practitioner Gerontology
DX: D64.9 Anemia, unspecified (principal); R94.4 Abnormal results of kidney function studies; N39.0 Urinary tract infection, site not specified
CPT/HCPCS: 80053; 85025

== ENCOUNTER → 2023-12-24 10:08 | Outpatient (REF) | payer MEDICARE, OTHER, SELFPAY | LOC: RAD 10:08 | PROVIDERS: ATTENDING PHYSICIAN Physician Assistant | DX: I73.9 Peripheral vascular disease, unspecified (principal) | CPT/HCPCS: 93922; 93925 ==

== ENCOUNTER 2024-02-14 10:50 | Day surgery (SDC) | payer MEDICARE, OTHER, SELFPAY ==
[2024-02-14] VITALS (17 sets, daily range): BP systolic 16–148; BP diastolic 54–78; BMI 24.0
[2024-02-14 11:21] LABS: Hematocrit 34.6 % (39.0-52.0); Hemoglobin 10.9 g/dL (13.0-18.0); Mean Corp Hgb Conc. 31.5 g/dL (33.0-37.0); Mean Corpuscular Hgb 26.1 pg (27.0-31.0); Mean Platelet Volume 9.1 fL (7.4-10.4); Platelet Count 328 10^3/uL (130-400); Red Blood Cell Count 4.17 10^6/uL (4.70-6.10); Red Cell Dist. Width 14.7 % (11.5-14.5); White Blood Cell Count 8.8 10^3/uL (4.8-10.8)
[2024-02-14 11:31] LABS: INR 1.16; PT 14.7 Sec (11.4-14.6)
[2024-02-14 11:32] LABS: APTT 37.7 Sec (23.4-35.0)
--- NOTE | 2024-02-14 11:33 | W.SUR.PREOP ---
Pre-Operative Surgical Note
-
I have examined this patient prior to the performance of the scheduled procedure.
The patient's condition is unchanged from the time of the current History and
Physical and the patient is able to undergo the scheduled procedure.
[2024-02-14 11:38] LABS: Blood Urea Nitrogen 17 mg/dl (9-20); Calcium 9.6 mg/dl (8.4-10.2); Carbon Dioxide 29 mmol/L (22-30); Chloride 104 mmol/L (98-107); Estimated Creatinine Clearance 66 ml/min; Glucose 114 mg/dl (70-99); Potassium 4.5 mmol/L (3.5-5.1); Sodium 144 mmol/L (135-145); eGFR > 60.00
[2024-02-14] MEDS: NSS 500 IV ×2 (11:49→14:03)
[2024-02-14 11:50] LABS: Glucose - Point of Care 103 mg/dl (70-99)
--- NOTE | 2024-02-14 12:43 | W.SUR.POST ---
Surgical Immediate Post Op
Note
Pre Op Diagnosis: PAD
Post Op Diagnosis: PAD
Procedure Performed: Diagnostic left lower extremity arteriogram
Primary Surgeon: Robert
Anesthesia: local and sedation
Estimated Blood Loss: <2cc
Fluids: see anesthesia flow sheet
Drains/Shunts: none
Specimens/Cultures: none
Doppler/Duplex/Angio (Y/N): Y
Complications: none
Operative Findings: In-stent restenosis
[2024-02-14 13:00] LABS: Glucose - Point of Care 101 mg/dl (70-99)
[2024-02-14] MEDS: NSS 1000 IV (14:32)
--- NOTE | 2024-02-14 14:49 | OR.RPT ---
Operative Report
Operative Report
PROCEDURE DATE: 02/14/2024
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
Postoperative diagnosis: Same
Procedure:
1. Duplex assisted right common femoral artery cannulation.
2. Aortogram and pelvic angiogram.
3. Left lower extremity arteriogram with selective catheterization of left superficial femoral artery.
4. Right femoral and right lower extremity arteriogram.
5. Supervision and interpretation.
Surgeon: Robert
[employer] Supervisor: None
Complications: None
Anesthesia: Local, sedation
Fluoroscopy:
16.1 min
60 mGy
13.22 Gy.cm2
Indications for procedure:
Nonhealing chronic left heel ulcer and second ulcer in the vicinity of tissues superficial to Achilles tendon. History of left SFA angioplasty and stenting. Known occlusion of the stents. History of right lower extremity arterial bypass for
peripheral arterial disease as well.
Description of procedure:
Patient was identified, brought to the operating room. Placed on the table in the supine position. After the adequate administration of anesthesia, the patient was prepped and draped in the standard surgical fashion. A standard preoperative
timeout was undertaken and everybody was in agreement with the plan.
The right common femoral artery was accessed with a micropuncture kit under direct duplex ultrasound guidance. A 5 Tongan sheath was then advanced over a 0.035 inch wire, and a rim catheter was advanced into the abdominal aorta. Aortogram and
pelvic angiogram was obtained. Findings as follows:
Infrarenal aorta: Tortuous eccentrically calcified infrarenal abdominal aorta with no definitive stenosis in the distalmost image segment.
Right common iliac artery: Patent with no significant stenosis.
Right external iliac artery: Patent with no significant stenosis.
Left common iliac artery: Patent with no significant stenosis.
Left external iliac artery: Patent with no significant stenosis.
(As noted above no significant stenosis in the iliac vessels, however moderate atherosclerotic plaque throughout the aorta/iliac vessels).
Using a floppy angled hydrophilic wire, the left common femoral artery was cannulated and the catheter was advanced. Left lower extremity arteriogram was obtained. Findings as follows:
Common femoral artery: Patent with no significant stenosis.
Profunda femoris artery: Patent with no significant stenosis. Some minor luminal irregularities in the midsegment.
Superficial femoral artery: Chronically occluded stents. (Long segment SFA).
Popliteal artery: Reconstituted flow in the above-knee popliteal artery. Continuous flow through the behind and below knee popliteal artery. Below the knee consisted primarily of an anterior tibial and peroneal artery runoff. The anterior tibial
artery was a moderately diseased artery, diminutive in areas with relatively poor filling onto the foot, no collaterals beyond the forefoot from the dorsalis pedis could be seen. The peroneal artery as noted was a dominant runoff vessel and gave
collateralization to reconstitute either a plantar or a collateral in that vicinity which appear to be the dominant foot vessel, but even that did not fill the distal foot as well.
At this point, I selectively cannulated the left profunda femoris artery, and then passed my rim catheter to that level. I then exchanged for a Storq wire and then an up and over 5 Tongan sheath. Then, using a flopping on hydrophilic wire and a
CXI catheter, I tried to traverse the occluded SFA stents. However, I could not make it past about 3 or 4 cm at most into the stent. I tried with several different techniques, including using a flap angled hydrophilic wire, a stiff angled
hydrophilic wire, a CXI catheter, quick cross catheter. No success with any of these techniques. Therefore at this point I felt that there was no simple endovascular solution for this. Therefore, at this point I withdrew the sheath to the right
external iliac artery. Right femoral angiogram demonstrated good puncture in the right common femoral artery. Given the history of a right lower extremity bypass graft with some elevated velocities I imaged the right lower extremity runoff which
demonstrated a diseased (calcified plaque) SFA, but no high-grade stenoses. The below the knee popliteal to dorsalis pedis artery bypass was patent with widely patent proximal anastomosis, widely patent graft, distal anastomosis appeared nicely
patent. The runoff vessel itself was very diseased with poor outflow into the foot.
At this point I was satisfied with the procedure. I exchanged for a short 5 Tongan sheath which will be withdrawn in the recovery room area. And manual pressure will be applied to that puncture site. The patient tolerated the procedure well.
[2024-02-14] MEDS: ROXICODONE 5 MG PO (17:21)
[2024-02-14 17:40] LABS: Glucose - Point of Care 91 mg/dl (70-99)
== END 2024-02-14 18:27 | disposition home or self-care (01) ==
LOC: CATH 10:50
PROVIDERS: ATTENDING PHYSICIAN Surgery Vascular Surgery; FAMILY PHYSICIAN Hospitalist
DX: I70.244 Atherosclerosis of native arteries of left leg with ulceration of heel and midfoot (principal); L97.429 Non-pressure chronic ulcer of left heel and midfoot with unspecified severity; I70.242 Atherosclerosis of native arteries of left leg with ulceration of calf; L97.229 Non-pressure chronic ulcer of left calf with unspecified severity; E11.51 Type 2 diabetes mellitus with diabetic peripheral angiopathy without gangrene; I48.91 Unspecified atrial fibrillation; I44.7 Left bundle-branch block, unspecified; E78.5 Hyperlipidemia, unspecified; Z85.46 Personal history of malignant neoplasm of prostate; I10 Essential (primary) hypertension; E11.9 Type 2 diabetes mellitus without complications; J44.9 Chronic obstructive pulmonary disease, unspecified; Z87.891 Personal history of nicotine dependence; Z79.82 Long term (current) use of aspirin; Z79.01 Long term (current) use of anticoagulants
CPT/HCPCS: 36247; 75625; 75716; C1769; C1894; C1887; 80048; 82962; 85027; 85610; 85730; 86850; 86900; 86901; 93970; Q9967

== ENCOUNTER → 2024-06-22 14:20 | Outpatient (REF) | payer MEDICARE, OTHER, SELFPAY | LOC: HWRAD 14:20 | PROVIDERS: ATTENDING PHYSICIAN Podiatrist Foot & Ankle Surgery | DX: L97.422 Non-pressure chronic ulcer of left heel and midfoot with fat layer exposed (principal) | CPT/HCPCS: 73650 ==